=== PATIENT | male | born 1965 | race Caucasian/White ===

== ENCOUNTER 2018-11-25 21:26 | Emergency (ER) | payer SELFPAY ==
[~2018-11-25] VITALS: Ht 167.6 cm; Wt 86.2 kg
[~2018-11-25 21:26] MED LIST: DOXY100C14 PO; GLYB3TAB3 PO; HUM100IN3 SQ; INSU100I11 SQ; INSU100I13 SQ; IPRA4AER IH; METF500T16 PO; METF500T3 PO; [UNRECOGNIZED DRUG - CODE] MC; insulin
[2018-11-25] MEDS ORDERED: predniSONE 20 MG TABLET PO ONE (22:15)
[2018-11-25] MEDS ORDERED: diphenhydrAMINE 50 MG/ML VIAL IM ONE (22:15)
[2018-11-25 22:41] LABS: BASO % 1 % (0-3); EOS # 0.6 x10^3/uL (0.0-0.7); EOS % 9 % (0-3); HEMATOCRIT 38.7 % (39.0-53.0); HEMOGLOBIN 13.1 g/dL (13.0-17.5); LYMPH # 1.4 x10^3/uL (1.0-4.8); LYMPH % 19 % (24-48); MEAN CORPUSCULAR HEMOGLOBIN 33 pg (25-35); MEAN CORPUSCULAR HGB CONC 34 g/dL (31-37); MEAN CORPUSCULAR VOLUME 97 fL (79-100); MONO # 0.4 x10^3/uL (0.0-1.1); MONO % 5 % (0-9); NEUT # 4.9 x10^3/uL (1.8-7.7); NEUT % 67 % (31-73); PLATELET COUNT 263 x10^3/uL (140-400); RED CELL DISTRIBUTION WIDTH 13.4 % (11.5-14.5); WHITE BLOOD COUNT 7.3 x10^3/uL (4.0-11.0)
[2018-11-25 23:01] LABS: BILIRUBIN,URINE NEGATIVE (NEG); CLARITY,URINE CLEAR; COLOR,URINE YELLOW; NITRITE,URINE NEGATIVE (NEG); PH,URINE 5.5; PROTEIN,URINE NEGATIVE (NEG-TRACE); UROBILINOGEN,URINE 0.2 mg/dL (0.2 mg/dL)
[2018-11-25 23:05] LABS: BACTERIA,URINE 0 /HPF (0-FEW); RBC,URINE 0 /HPF (0-2); SQUAMOUS EPITHELIAL CELL,UR FEW /LPF; WBC,URINE OCC /HPF (0-4)
--- NOTE | 2018-11-25 23:20 | RAD ---
Exam: CT head INDICATION: Dizziness TECHNIQUE: Sequential axial images through the head were obtained without the administration of IV contrast. Comparisons: None FINDINGS: No focal parenchymal lesion or hemorrhage is identified. There is no midline shift or sulcal effacement. No acute vascular territory infarction is identified. Nuñez-white distinction is preserved. The ventricular system is within normal limits without compression hydrocephalus. The basal cisterns are well maintained. The visualized portions of the paranasal sinuses and mastoid air cells are well-pneumatized. No acute fractures. IMPRESSION: No acute intracranial abnormality. Exposure: One or more of the following in the visualized dose reduction techniques were utilized for this examination: 1. Automated exposure control 2. Adjustment of the MA and/or KV according to patient size Use of iterative of reconstructive technique Electronically signed by: Anibal Martell MD (11/25/2018 11:17 PM) [facility]
--- NOTE | 2018-11-25 23:39 | PHYS DOC ---
Past Medical History Past Medical History: Diabetes-Type II Past Surgical History: Cholecystectomy Alcohol Use: Occasionally Drug Use: Marijuana, Methamphetamine Adult General Chief Complaint Chief Complaint: BLOOD SUGAR PROBLEM HPI HPI Patient is a 53 year old male who presents with complains of dizziness �2 days. States at times movement and change of position make worse. He as well describes poison fang dermatitis which is worsened tonight. Patient has no primary care physician, does have underlying history of diabetes. He denies any chest pain, shortness of breath, nausea or vomiting. Orthostatic vital signs were reviewed, and unremarkable. Please see documentation. Review of Systems Review of Systems Constitutional: Denies fever or chills [] Eyes: Dizziness, no visual changes HENT: Denies nasal congestion or sore throat [] Respiratory: Denies cough or shortness of breath [] Cardiovascular: No additional information not addressed in HPI [] GI: Denies abdominal pain, nausea, vomiting, bloody stools or diarrhea [] : Denies dysuria or hematuria [] Musculoskeletal: Denies back pain or joint pain [] Integument: Itching, rash appreciated[] Neurologic: Denies headache, focal weakness or sensory changes [] Endocrine: Denies polyuria or polydipsia [] All other systems were reviewed and found to be within normal limits, except as documented in this note. Current Medications Current Medications Current Medications Medications (Trade) Dose Ordered Sig/Sofia Start Time Stop Time Status Last Admin Dose Admin Diphenhydramine HCl (Benadryl) 25 mg 1X ONCE 11/25/18 22:15 11/25/18 22:16 DC 11/25/18 22:40 25 MG Prednisone (Prednisone) 60 mg 1X ONCE 11/25/18 22:15 11/25/18 22:16 DC 11/25/18 22:40 60 MG Allergies Allergies Allergies Coded Allergies Type Severity Reaction Last Updated Verified No Known Drug Allergies 04/18/14 No Physical Exam Physical Exam Constitutional: Well developed, well nourished, no acute distress, non-toxic appearance. [] HENT: Normocephalic, atraumatic, bilateral external ears normal, oropharynx moist, no oral exudates, nose normal[] Eyes: PERRLA, EOMI, conjunctiva normal, no discharge, no evidence of nystagmus on examination Neck: Normal range of motion, no tenderness, supple, no stridor. [] Cardiovascular:Heart rate regular rhythm, no murmur [] Lungs & Thorax: Bilateral breath sounds clear to auscultation [] Abdomen: Bowel sounds normal, soft, no tenderness, no masses, no pulsatile masses. [] Skin: Warm, dry, no erythema, dermatitis appreciated to bilateral upper extremities, bilateral lower extremities. Back: No tenderness, no CVA tenderness. [] Extremities: No tenderness, no cyanosis, no clubbing, ROM intact, no edema. [] Neurologic: Alert and oriented X 3, normal motor function, normal sensory function, no focal deficits noted. [] Psychologic: Rest, somewhat tearful at times however denies suicidal and homicidal ideation Current Patient Data Vital Signs Vital Signs Date Time Temp Pulse Resp B/P (MAP) Pulse Ox O2 Delivery O2 Flow Rate FiO2 11/25/18 21:31 98.1 68 14 175/85 (115) 97 Room Air 98.1 Lab Values Laboratory Tests Test 11/25/18 21:38 11/25/18 22:26 11/25/18 22:54 11/25/18 23:20 Glucose (Fingerstick) 140 mg/dL (70-99) H White Blood Count 7.3 x10^3/uL (4.0-11.0) Red Blood Count 4.00 x10^6/uL (4.30-5.70) L Hemoglobin 13.1 g/dL (13.0-17.5) Hematocrit 38.7 % (39.0-53.0) L Mean Corpuscular Volume 97 fL (79-100) Mean Corpuscular Hemoglobin 33 pg (25-35) Mean Corpuscular Hemoglobin Concent 34 g/dL (31-37) Red Cell Distribution Width 13.4 % (11.5-14.5) Platelet Count 263 x10^3/uL (140-400) Neutrophils (%) (Auto) 67 % (31-73) Lymphocytes (%) (Auto) 19 % (24-48) L Monocytes (%) (Auto) 5 % (0-9) Eosinophils (%) (Auto) 9 % (0-3) H Basophils (%) (Auto) 1 % (0-3) Neutrophils # (Auto) 4.9 x10^3/uL (1.8-7.7) Lymphocytes # (Auto) 1.4 x10^3/uL (1.0-4.8) Monocytes # (Auto) 0.4 x10^3/uL (0.0-1.1) Eosinophils # (Auto) 0.6 x10^3/uL (0.0-0.7) Basophils # (Auto) 0.0 x10^3/uL (0.0-0.2) Urine Collection Type Unknown Urine Color Yellow Urine Clarity Clear Urine pH 5.5 Urine Specific [place] 1.020 Urine Protein Negative mg/dL (NEG-TRACE) Urine Glucose (UA) 250 mg/dL (NEG) Urine Ketones (Stick) Negative mg/dL (NEG) Urine Blood Negative (NEG) Urine Nitrite Negative (NEG) Urine Bilirubin Negative (NEG) Urine Urobilinogen Dipstick 0.2 mg/dL (0.2 mg/dL) Urine Leukocyte Esterase Negative (NEG) Urine RBC 0 /HPF (0-2) Urine WBC Occ /HPF (0-4) Urine Squamous Epithelial Cells Few /LPF Urine Bacteria 0 /HPF (0-FEW) Urine Mucus Mod /LPF Sodium Level 145 mmol/L (136-145) Potassium Level 3.3 mmol/L (3.5-5.1) L Chloride Level 108 mmol/L (98-107) H Carbon Dioxide Level 29 mmol/L (21-32) Anion Gap 8 (6-14) Blood Urea Nitrogen 9 mg/dL (8-26) Creatinine 0.8 mg/dL (0.7-1.3) Estimated GFR (Cockcroft-Gault) 100.7 BUN/Creatinine Ratio 11 (6-20) Glucose Level 133 mg/dL (70-99) H Calcium Level 8.4 mg/dL (8.5-10.1) L Total Bilirubin 0.3 mg/dL (0.2-1.0) Aspartate Amino Transferase (AST) 11 U/L (15-37) L Alanine Aminotransferase (ALT) 11 U/L (16-63) L Alkaline Phosphatase 80 U/L (46-116) Total Protein 6.4 g/dL (6.4-8.2) Albumin 2.9 g/dL (3.4-5.0) L Albumin/Globulin Ratio 0.8 (1.0-1.7) L Laboratory Tests 11/25/18 22:26 Laboratory Tests 11/25/18 23:20 EKG EKG [] Radiology/Procedures Radiology/Procedures [facility] [address] [place] [address] IMAGING REPORT Signed PATIENT: KRAIG NICK ACCOUNT: [id number] : 1965 LOCATION: ER AGE: 53 SEX: M EXAM STATUS: REG ER ORD. PHYSICIAN: JAMEEL NJ MD REASON: dizzyness/headache PROCEDURE: CT HEAD WO CONTRAST Exam: CT head INDICATION: Dizziness TECHNIQUE: Sequential axial images through the head were obtained without the administration of IV contrast. Comparisons: None FINDINGS: No focal parenchymal lesion or hemorrhage is identified. There is no midline shift or sulcal effacement. No acute vascular territory infarction is identified. Nuñez-white distinction is preserved. The ventricular system is within normal limits without compression hydrocephalus. The basal cisterns are well maintained. The visualized portions of the paranasal sinuses and mastoid air cells are well-pneumatized. No acute fractures. IMPRESSION: No acute intracranial abnormality. Exposure: One or more of the following in the visualized dose reduction techniques were utilized for this examination: 1. Automated exposure control 2. Adjustment of the MA and/or KV according to patient size Use of iterative of reconstructive technique Electronically signed by: Anibal Simpson MD (11/25/2018 11:17 PM) [facility] [place] DICTATED and SIGNED BY: ANIBAL SIMPSON MD DATE: 11/25/18 2317 [] Course & Med Decision Making Course & Med Decision Making Pertinent Labs and Imaging studies reviewed. (See chart for details) Patient presents to the emergency Department with complaints of dizziness �2 days, poison fang dermatitis. Laboratories and imaging reviewed. CT of head without evidence of acute process. Patient provided with prednisone 60 mg, Benadryl 25 mg IV with improvement. Prescription findings with patient prior to discharge. Would recommend continuation of Medrol Dosepak, meclizine provided for dizziness 25 mg by mouth twice a day �5 days. Return precautions provided upon discharge Dragon Disclaimer Dragon Disclaimer This electronic medical record was generated, in whole or in part, using a voice recognition dictation system. Departure Departure Impression: Primary Impression: Dizziness Additional Impression: Poison fang dermatitis Disposition: HOME, SELF-CARE Condition: STABLE Referrals: NO PCP (PCP) Patient Instructions: Dizziness, [id number], Poison Fang, [id number] Scripts Methylprednisolone (MEDROL) 4 Mg Tab.ds.pk 1 PKG PO UD for inflammation, #1 PKG Prov: JAMEEL NJ MD 11/26/18 Meclizine Hcl (MECLIZINE HCL) 25 Mg Tablet 1 TAB PO BID for dizziness, #10 TAB Prov: JAMEEL NJ MD 11/26/18 Problem Qualifiers JAMEEL NJ MD Nov 25, 2018 23:39
[2018-11-25 23:58] LABS: CALCIUM 8.4 mg/dL (8.5-10.1); CREATININE 0.8 mg/dL (0.7-1.3); GFR 100.7; POTASSIUM 3.3 mmol/L (3.5-5.1)
[2018-11-26 00:03] LABS: ALBUMIN 2.9 g/dL (3.4-5.0); ALBUMIN/GLOBULIN RATIO 0.8 (1.0-1.7); TOTAL BILIRUBIN 0.3 mg/dL (0.2-1.0); TOTAL PROTEIN 6.4 g/dL (6.4-8.2)
[2018-11-26] MEDS ORDERED: MECL25TA3 PO (00:29)
[2018-11-26] MEDS ORDERED: METH4TAB2 PO (00:32)
[2018-11-26 01:23] VITALS: BP 141/79
== END 2018-11-26 01:25 | disposition home or self-care (01) ==
LOC: ER 21:26
DX: R42 Dizziness and giddiness (principal); L23.7 Allergic contact dermatitis due to plants, except food; E11.9 Type 2 diabetes mellitus without complications
CPT/HCPCS: 36415; 70450; 80053; 81001; 82962; 85025; 96374; 99285; J1200; J7512; 96372

== ENCOUNTER 2019-09-29 08:50 | Inpatient (IN) | payer SELFPAY ==
[~2019-09-29] VITALS: Ht 167.6 cm; Wt 86.0 kg
[~2019-09-29 08:50] MED LIST changes: +MECL-75 PO; +METH4TAB2 PO
[2019-09-29] MEDS ORDERED: IV NORMAL SALINE 1000ML BAG 1,000 ML IV ONE ×2 (10:00→11:15)
[2019-09-29 10:17] LABS: BILIRUBIN,URINE NEGATIVE (NEG); CLARITY,URINE CLEAR; COLOR,URINE YELLOW; NITRITE,URINE NEGATIVE (NEG); PROTEIN,URINE NEGATIVE (NEG-TRACE); UROBILINOGEN,URINE 0.2 mg/dL (0.2 mg/dL)
[2019-09-29 10:19] LABS: BASO # 0.1 x10^3/uL (0.0-0.2); BASO % 1 % (0-3); EOS # 0.3 x10^3/uL (0.0-0.7); EOS % 3 % (0-3); HEMATOCRIT 46.3 % (39.0-53.0); HEMOGLOBIN 16.3 g/dL (13.0-17.5); LYMPH # 1.9 x10^3/uL (1.0-4.8); LYMPH % 21 % (24-48); MEAN CORPUSCULAR HEMOGLOBIN 33 pg (25-35); MEAN CORPUSCULAR HGB CONC 35 g/dL (31-37); MEAN CORPUSCULAR VOLUME 94 fL (79-100); MONO # 0.4 x10^3/uL (0.0-1.1); MONO % 5 % (0-9); NEUT # 6.4 x10^3/uL (1.8-7.7); NEUT % 71 % (31-73); PLATELET COUNT 230 x10^3/uL (140-400); RED BLOOD COUNT 4.92 x10^6/uL (4.30-5.70); RED CELL DISTRIBUTION WIDTH 12.6 % (11.5-14.5)
[2019-09-29 10:23] LABS: CALCIUM 9.6 mg/dL (8.5-10.1); CREATININE 1.3 mg/dL (0.7-1.3); GFR 57.3; POTASSIUM 3.8 mmol/L (3.5-5.1)
[2019-09-29 10:32] LABS: BACTERIA,URINE 0 /HPF (0-FEW); RBC,URINE 0 /HPF (0-2); SQUAMOUS EPITHELIAL CELL,UR FEW /LPF; WBC,URINE 0 /HPF (0-4)
[2019-09-29] MEDS ORDERED: INSULIN REGULAR 100 UNIT/ML 3ML VIAL. IV ONE (12:00)
--- NOTE | 2019-09-29 12:08 | PHYS DOC ---
Past Medical History Past Medical History: Diabetes-Type II Past Surgical History: No Surgical History Smoking Status: Current Every Day Smoker Alcohol Use: None Drug Use: Marijuana, Methamphetamine General Adult EDM: Chief Complaint: BLOOD SUGAR PROBLEM HPI: HPI: Patient is a 54 year old male with past medical history of diabetes who presents with dizziness, lightheadedness, increased thirst. This is been ongoing for the last couple of days. He got significantly worse today that he had a hard time walking around. He has been out of his insulin for the last 6 days. He states that he is homeless. His brother often buys his insulin for him, however his brother has not been working due to being sick. Review of Systems: Review of Systems: General: Denies fever, chills, sweats, fatigue Eyes: Denies drainage, blurred vision, eye redness HENT: Denies rhinorrhea, sore throat, earache Respiratory: Denies cough, shortness of breath, wheezing Cardiac: Denies edema, palpitations, chest pain GI: Denies abdominal pain, Nausea, vomiting MSK: Denies back pain, neck pain Skin: Denies rash, jaundice Neuro: Denies headache, dizziness reports lightheadedness Psychiatric: Denies SI/HI Heart Score: Risk Factors: Risk Factors: DM, Current or recent (<one month) smoker, HTN, HLP, family history of CAD, obesity. Risk Scores: Score 0 - 3: 2.5% MACE over next 6 weeks - Discharge Home Score 4 - 6: 20.3% MACE over next 6 weeks - Admit for Clinical Observation Score 7 - 10: 72.7% MACE over next 6 weeks - Early Invasive Strategies Current Medications: Current Medications Medications (Trade) Dose Ordered Sig/Sofia Start Time Stop Time Status Last Admin Dose Admin Sodium Chloride 1,000 ml @ 1,000 mls/hr 1X ONCE 09/29/19 11:15 09/29/19 12:14 09/29/19 11:08 1,000 MLS/HR Allergies: Allergies: Allergies Coded Allergies Type Severity Reaction Last Updated Verified No Known Drug Allergies 04/18/14 No Physical Exam: PE: General: Awake, alert, NAD. Well Nourished, well hydrated. Cooperative HEENT: Atraumatic, EOMI, PERRL, airway patent, moist oral mucosa Neck: Supple, trachea midline Respiratory: CTA bilaterally, normal effort, no wheezing/crackles CV: RRR, no murmur, cap refill <2 GI: Soft, nondistended, nontender, no masses MSK: No obvious deformities Skin: Warm, dry, intact Neuro: A&O x3, speech NL, sensory and motor grossly intact, no focal deficits Psych: Normal affect, normal mood, not suicidal or homicidal Current Patient Data: Labs: Laboratory Tests Test 09/29/19 09:50 09/29/19 11:20 White Blood Count 9.0 x10^3/uL (4.0-11.0) Red Blood Count 4.92 x10^6/uL (4.30-5.70) Hemoglobin 16.3 g/dL (13.0-17.5) Hematocrit 46.3 % (39.0-53.0) Mean Corpuscular Volume 94 fL (79-100) Mean Corpuscular Hemoglobin 33 pg (25-35) Mean Corpuscular Hemoglobin Concent 35 g/dL (31-37) Red Cell Distribution Width 12.6 % (11.5-14.5) Platelet Count 230 x10^3/uL (140-400) Neutrophils (%) (Auto) 71 % (31-73) Lymphocytes (%) (Auto) 21 % (24-48) L Monocytes (%) (Auto) 5 % (0-9) Eosinophils (%) (Auto) 3 % (0-3) Basophils (%) (Auto) 1 % (0-3) Neutrophils # (Auto) 6.4 x10^3/uL (1.8-7.7) Lymphocytes # (Auto) 1.9 x10^3/uL (1.0-4.8) Monocytes # (Auto) 0.4 x10^3/uL (0.0-1.1) Eosinophils # (Auto) 0.3 x10^3/uL (0.0-0.7) Basophils # (Auto) 0.1 x10^3/uL (0.0-0.2) Urine Collection Type Unknown Urine Color Yellow Urine Clarity Clear Urine pH 5.0 (<5.0-8.0) Urine Specific [place] >=1.030 (1.000-1.030) Urine Protein Negative mg/dL (NEG-TRACE) Urine Glucose (UA) >=1000 mg/dL (NEG) Urine Ketones (Stick) 15 mg/dL (NEG) Urine Blood Negative (NEG) Urine Nitrite Negative (NEG) Urine Bilirubin Negative (NEG) Urine Urobilinogen Dipstick 0.2 mg/dL (0.2 mg/dL) Urine Leukocyte Esterase Negative (NEG) Urine RBC 0 /HPF (0-2) Urine WBC 0 /HPF (0-4) Urine Squamous Epithelial Cells Few /LPF Urine Bacteria 0 /HPF (0-FEW) Sodium Level 130 mmol/L (136-145) L Potassium Level 3.8 mmol/L (3.5-5.1) Chloride Level 90 mmol/L (98-107) L Carbon Dioxide Level 27 mmol/L (21-32) Anion Gap 13 (6-14) Blood Urea Nitrogen 14 mg/dL (8-26) Creatinine 1.3 mg/dL (0.7-1.3) Estimated GFR (Cockcroft-Gault) 57.3 Glucose Level 637 mg/dL (70-99) *H Calcium Level 9.6 mg/dL (8.5-10.1) Glucose (Fingerstick) 475 mg/dL (70-99) H Laboratory Tests 09/29/19 09:50 Laboratory Tests 09/29/19 09:50 Vital Signs: Vital Signs Date Time Temp Pulse Resp B/P (MAP) Pulse Ox O2 Delivery O2 Flow Rate FiO2 09/29/19 09:55 98.5 90 18 117/82 (94) 96 Room Air 98.5 EKG: EKG: [] Radiology/Procedures: Radiology/Procedures: [] Course & Med Decision Making: Course & Med Decision Making Pertinent Labs and Imaging studies reviewed. (See chart for details) Patient is a 54-year-old male with past medical history of diabetes who presents to the emergency room with lightheadedness and increased thirst after not taking his insulin for several days. Patient's glucose is in the 600s. He is not in HHS or DKA. He will given fluids and glucose will be reevaluated. He will be admitted for hyperglycemia. Dragon Disclaimer: Margaret Disclaimer: This electronic medical record was generated, in whole or in part, using a voice recognition dictation system. Departure Departure Impression: Primary Impression: Hyperglycemia Disposition: ADMITTED INPATIENT Condition: STABLE Referrals: NO PCP (PCP) Justicifation of Admission Dx: Justifications for Admission: Justification of Admission Dx: Yes Diabetic Urgency: Diabetic Urgency DOMO MANE MD Sep 29, 2019 12:08
--- NOTE | 2019-09-29 12:11 | PDOC1 ---
History and Physical Date of Admission Date of Admission DATE: 09/29/19 TIME: 12:07 Identification/Chief Complaint Chief Complaint Polyuria, polydipsia Source Source: Patient History of Present Illness History of Present Illness Mr Turner is a 54yo M w/ PMHx Dm2, COPD, smoker comes to ED reporting he and his brother was not able to buy him insulin anymore and has had polyuria and polydipsia for about 5 days and just "does not feel good." Labs in ED NA 130, K3.8, BUN 14, CR 1.3, glucose 637. A1c of 14.2 previously. 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 Sad he was laid off by [employer]. Notes he is ok doing what his did with NPH insulin and oral meds, but now he is housing insecure sleeping on peoples couches when he can. Of further note his brother has been short of breath and is been tested for COVID-19 currently. No pain complaints. Admitted for further treatment Past Medical History Pulmonary: Bronchitis Psych: Addictions Infectious disease: No pertinent hx Endocrine: Diabetes Family History Family History: High Cholestrol Social History ALCOHOL: occassional Drugs: None, Other Current Medications Current Medications Current Medications Sodium Chloride 1,000 ml @ 40 mls/hr 1X ONCE IV Last administered on 09/29/19at 10:00; Start 09/29/19 at 10:00; Stop 09/30/19 at 10:59 Sodium Chloride 1,000 ml @ 1,000 mls/hr 1X ONCE IV Last administered on 09/28at 11:08; Start 09/29/19 at 11:15; Stop 09/29/19 at 12:14 Insulin Human Regular (HumuLIN R VIAL) 10 unit 1X ONCE IV Last administered on 09/29/19at 12:03; Start 09/29/19 at 12:00; Stop 09/29/19 at 12:02; Status DC Active Scripts Active Medrol (Methylprednisolone) 4 Mg Tab.ds.pk 1 Pkg PO UD Meclizine Hcl 25 Mg Tablet 1 Tab PO BID Metformin Hcl 500 Mg Tablet 500 Mg PO BIDWMEALS 30 Days Humalog (Insulin Lispro) 100 Unit/1 Ml Insuln.pen 10 Units SQ TIDAC 30 Days Lantus Solostar (Insulin Glargine,Hum.rec.anlog) 100 Unit/1 Ml Insuln.pen 20 Units SQ QHS 30 Days Allergies Allergies: Coded Allergies: No Known Drug Allergies (Unverified , 04/18/14) Physical Exam General: Alert, Oriented X3, Cooperative, No acute distress HEENT: Atraumatic, PERRLA, EOMI, Mucous membr. moist/pink Lungs: Other (scattered wheezing) Heart: S1S2, RRR, no thrills, no rubs Abdomen: Normal bowel sounds, Soft, No tenderness, No hepatosplenomegaly, No masses Rectal Exam: not examined Extremities: No clubbing, No cyanosis, No edema, Normal pulses, No tenderness/ swelling Skin: No rashes, No breakdown, Other (Sunburned, poor skin turgor) Neuro: Normal gait, Normal speech, Strength at 5/5 X4 ext, Normal tone, Sensation intact, Cranial nerves 3-12 NL, Reflexes 2+ Psych/Mental Status: Mental status NL, Mood NL Vitals Vitals Vital Signs Date Time Temp Pulse Resp B/P (MAP) Pulse Ox O2 Delivery O2 Flow Rate FiO2 09/29/19 09:55 98.5 90 18 117/82 (94) 96 Room Air 98.5 Labs Labs Laboratory Tests Test 09/29/19 09:50 09/29/19 11:20 White Blood Count 9.0 x10^3/uL (4.0-11.0) Red Blood Count 4.92 x10^6/uL (4.30-5.70) Hemoglobin 16.3 g/dL (13.0-17.5) Hematocrit 46.3 % (39.0-53.0) Mean Corpuscular Volume 94 fL (79-100) Mean Corpuscular Hemoglobin 33 pg (25-35) Mean Corpuscular Hemoglobin Concent 35 g/dL (31-37) Red Cell Distribution Width 12.6 % (11.5-14.5) Platelet Count 230 x10^3/uL (140-400) Neutrophils (%) (Auto) 71 % (31-73) Lymphocytes (%) (Auto) 21 % (24-48) Monocytes (%) (Auto) 5 % (0-9) Eosinophils (%) (Auto) 3 % (0-3) Basophils (%) (Auto) 1 % (0-3) Neutrophils # (Auto) 6.4 x10^3/uL (1.8-7.7) Lymphocytes # (Auto) 1.9 x10^3/uL (1.0-4.8) Monocytes # (Auto) 0.4 x10^3/uL (0.0-1.1) Eosinophils # (Auto) 0.3 x10^3/uL (0.0-0.7) Basophils # (Auto) 0.1 x10^3/uL (0.0-0.2) Urine Collection Type Unknown Urine Color Yellow Urine Clarity Clear Urine pH 5.0 (<5.0-8.0) Urine Specific [place] >=1.030 (1.000-1.030) Urine Protein Negative mg/dL (NEG-TRACE) Urine Glucose (UA) >=1000 mg/dL (NEG) Urine Ketones (Stick) 15 mg/dL (NEG) Urine Blood Negative (NEG) Urine Nitrite Negative (NEG) Urine Bilirubin Negative (NEG) Urine Urobilinogen Dipstick 0.2 mg/dL (0.2 mg/dL) Urine Leukocyte Esterase Negative (NEG) Urine RBC 0 /HPF (0-2) Urine WBC 0 /HPF (0-4) Urine Squamous Epithelial Cells Few /LPF Urine Bacteria 0 /HPF (0-FEW) Sodium Level 130 mmol/L (136-145) Potassium Level 3.8 mmol/L (3.5-5.1) Chloride Level 90 mmol/L (98-107) Carbon Dioxide Level 27 mmol/L (21-32) Anion Gap 13 (6-14) Blood Urea Nitrogen 14 mg/dL (8-26) Creatinine 1.3 mg/dL (0.7-1.3) Estimated GFR (Cockcroft-Gault) 57.3 Glucose Level 637 mg/dL (70-99) Calcium Level 9.6 mg/dL (8.5-10.1) Glucose (Fingerstick) 475 mg/dL (70-99) Laboratory Tests Test 09/29/19 09:50 09/29/19 11:20 White Blood Count 9.0 x10^3/uL (4.0-11.0) Red Blood Count 4.92 x10^6/uL (4.30-5.70) Hemoglobin 16.3 g/dL (13.0-17.5) Hematocrit 46.3 % (39.0-53.0) Mean Corpuscular Volume 94 fL (79-100) Mean Corpuscular Hemoglobin 33 pg (25-35) Mean Corpuscular Hemoglobin Concent 35 g/dL (31-37) Red Cell Distribution Width 12.6 % (11.5-14.5) Platelet Count 230 x10^3/uL (140-400) Neutrophils (%) (Auto) 71 % (31-73) Lymphocytes (%) (Auto) 21 % (24-48) Monocytes (%) (Auto) 5 % (0-9) Eosinophils (%) (Auto) 3 % (0-3) Basophils (%) (Auto) 1 % (0-3) Neutrophils # (Auto) 6.4 x10^3/uL (1.8-7.7) Lymphocytes # (Auto) 1.9 x10^3/uL (1.0-4.8) Monocytes # (Auto) 0.4 x10^3/uL (0.0-1.1) Eosinophils # (Auto) 0.3 x10^3/uL (0.0-0.7) Basophils # (Auto) 0.1 x10^3/uL (0.0-0.2) Urine Collection Type Unknown Urine Color Yellow Urine Clarity Clear Urine pH 5.0 (<5.0-8.0) Urine Specific [place] >=1.030 (1.000-1.030) Urine Protein Negative mg/dL (NEG-TRACE) Urine Glucose (UA) >=1000 mg/dL (NEG) Urine Ketones (Stick) 15 mg/dL (NEG) Urine Blood Negative (NEG) Urine Nitrite Negative (NEG) Urine Bilirubin Negative (NEG) Urine Urobilinogen Dipstick 0.2 mg/dL (0.2 mg/dL) Urine Leukocyte Esterase Negative (NEG) Urine RBC 0 /HPF (0-2) Urine WBC 0 /HPF (0-4) Urine Squamous Epithelial Cells Few /LPF Urine Bacteria 0 /HPF (0-FEW) Sodium Level 130 mmol/L (136-145) Potassium Level 3.8 mmol/L (3.5-5.1) Chloride Level 90 mmol/L (98-107) Carbon Dioxide Level 27 mmol/L (21-32) Anion Gap 13 (6-14) Blood Urea Nitrogen 14 mg/dL (8-26) Creatinine 1.3 mg/dL (0.7-1.3) Estimated GFR (Cockcroft-Gault) 57.3 Glucose Level 637 mg/dL (70-99) Calcium Level 9.6 mg/dL (8.5-10.1) Glucose (Fingerstick) 475 mg/dL (70-99) Images Images CXR: No focal parenchymal lesion or hemorrhage is identified. There is no midline shift or sulcal effacement. No acute vascular territory infarction is identified. Nuñez-white distinction is preserved. The ventricular system is within normal limits without compression hydrocephalus. The basal cisterns are well maintained. The visualized portions of the paranasal sinuses and mastoid air cells are well- pneumatized. No acute fractures. IMPRESSION: No acute intracranial abnormality. VTE Prophylaxis Ordered VTE Prophylaxis Devices: Yes VTE Pharmacological Prophylaxi: Yes Assessment/Plan Assessment/Plan A/P: Hyperglycemia with HHNK - type 2 diabetes mellitus. Will get back on meds, IV insulin and IVF for now. COPD with shortness of breath - his brother is being COVID [address] testing. Morbid obesity, BMI 48 - counseled heavily on lifestyle modification tobacco abuse disorder, 2 pack a day VANI - likely vasomotor nephropathy. will hydrate FEN - NPO PPX - lovenox FULL CODE Dispo - inpatient for HHNK treatment and COVID 19 testing Patient was evaluated during global COVID-19 pandemic and the diagnosis was considered upon her initial presentation. Their evaluation treatment testing was consistent with current guidelines for patients who present with complaints of symptoms that may be related to COVID-19. Will be placed in comfort isolation unit Justicifation of Admission Dx: Justifications for Admission: Justification of Admission Dx: Yes LAN BENNETT MD Sep 29, 2019 12:11
[2019-09-29] MEDS ORDERED: DOCUSATE SODIUM 100 MG CAPSULE. PO PRN (14:30)
[2019-09-29] MEDS ORDERED: ONDANSETRON PF 4 MG/2 ML VIAL. IV PRN (14:30)
[2019-09-29] MEDS ORDERED: guaiFENesin ORAL 200 MG/10 ML LIQUID. PO PRN (14:30)
[2019-09-29] MEDS ORDERED: DEXTROSE 50% 25 GM / 50ML DISP.SYRIN. IV PRN (14:30)
[2019-09-29] MEDS: IV NORMAL SALINE 1000ML BAG 1,000 ML IV SCH (15:43)
[2019-09-29] MEDS: ENOXAPARIN 40 MG/0.4 ML SYRINGE. SQ SCH (15:44)
--- NOTE | 2019-09-29 15:58 | RAD ---
CHEST AP ONLY History: COPD, COVID PUI Comparison: February 28, 2018 Findings: Single view of the chest is submitted. There is no infiltrate, pneumothorax, or effusion. The pericardial cardiac silhouette is within normal limits in size. There is some atherosclerotic calcification of the thoracic aorta. Impression: 1. There is no radiographic evidence of acute cardiopulmonary disease. Electronically signed by: Koffi Pro MD (09/29/2019 3:55 PM) [facility]
[2019-09-29 16:27] VITALS: BP 142/84
[2019-09-29] MEDS: metFORMIN 500 MG TABLET PO SCH (17:00)
[2019-09-29] MEDS: INSULIN LISPRO 300 UNITS/3 ML VIAL. SQ SCH ×2 (17:18→22:13)
[2019-09-29] MEDS: ACETAMINOPHEN 325 MG TABLET. PO PRN (17:19)
[2019-09-29 19:00] VITALS: BP 155/65
[2019-09-29] MEDS ORDERED: INSULIN NPH/REG INSULIN 70/30 300 UNITS/3 ML INSULN.PEN. SQ SCH (21:00)
[2019-09-29 23:00] VITALS: BP 92/53
[2019-09-30] MEDS: IV NORMAL SALINE 1000ML BAG 1,000 ML IV SCH ×3 (02:20→20:39)
[2019-09-30 03:00] VITALS: BP 147/82
[2019-09-30 07:00] VITALS: BP 118/70
[2019-09-30] MEDS: metFORMIN 500 MG TABLET PO SCH ×2 (08:41→17:09)
[2019-09-30] MEDS: INSULIN LISPRO 300 UNITS/3 ML VIAL. SQ SCH ×4 (09:28→21:00)
[2019-09-30] MEDS: INSULIN NPH/REG INSULIN 70/30 300 UNITS/3 ML INSULN.PEN. SQ SCH ×2 (09:30→22:08)
[2019-09-30 11:00] VITALS: BP 138/71
--- NOTE | 2019-09-30 11:11 | PDOC ---
[employer] PROGRESS NOTE Chief Complaint Chief Complaint Hyperglycemia with HHNK - type 2 diabetes mellitus COPD with shortness of breath Morbid obesity, BMI 48 tobacco abuse disorde VANI - likely vasomotor nephropathy History of Present Illness History of Present Illness 09/30/2019 Patient seen and examined He complains of some throat pain states Chloraseptic helped Discussed with RN Chart reviewed Vitals/I&O Vitals/I&O: Vital Signs Date Time Temp Pulse Resp B/P (MAP) Pulse Ox O2 Delivery O2 Flow Rate FiO2 09/30/19 03:00 98.9 66 19 147/82 (103) 97 Room Air 98.9 I & O 09/29/19 09/29/19 09/30/19 15:00 23:00 07:00 Intake Total 2000 ml 0 ml 120 ml Output Total 500 ml Balance 2000 ml 0 ml -380 ml Physical Exam General: Alert, Oriented X3, Cooperative, No acute distress Lungs: Clear Abdomen: Normal bowel sounds, Soft, No tenderness, No hepatosplenomegaly, No masses Extremities: No clubbing, No cyanosis, No edema, Normal pulses, No tenderness/swelling Skin: No rashes, No breakdown, Other (Sunburned, poor skin turgor) Labs Labs: Laboratory Tests Test 09/29/19 11:20 09/29/19 15:38 09/29/19 17:05 09/29/19 21:07 Glucose (Fingerstick) 475 mg/dL (70-99) 277 mg/dL (70-99) 373 mg/dL (70-99) 318 mg/dL (70-99) Test 09/30/19 09:04 Glucose (Fingerstick) 246 mg/dL (70-99) Assessment and Plan Assessmemt and Plan Hyperglycemia with HHNK - type 2 diabetes mellitus. Will get back on meds, IV insulin and IVF for now. COPD with shortness of breath - his brother is being COVID [address] testing. Morbid obesity, BMI 48 - counseled heavily on lifestyle modification tobacco abuse disorder, 2 pack a day VANI - likely vasomotor nephropathy. will hydrate Check for COVID-19 Home meds DVT prophylaxis Full code Comment Review of Relevant I have reviewed the following items moncho (where applicable) has been applied. Medications: Current Medications Medications (Trade) Dose Ordered Sig/Sofia Route PRN Reason Start Time Stop Time Status Last Admin Dose Admin Sodium Chloride 1,000 ml @ 1,000 mls/hr 1X ONCE IV 09/29/19 11:15 09/29/19 12:14 DC 09/29/19 11:08 Insulin Human Regular (HumuLIN R VIAL) 10 unit 1X ONCE IV 09/29/19 12:00 09/29/19 12:02 DC 09/29/19 12:03 Sodium Chloride 1,000 ml @ 100 mls/hr Q10H IV 09/29/19 14:25 09/30/19 08:42 Acetaminophen (Tylenol) 650 mg PRN Q4HRS PRN PO TEMP OVER 100.4F OR MILD PAIN 09/29/19 14:30 09/29/19 17:19 Enoxaparin Sodium (Lovenox 40mg Syringe) 40 mg Q24H SQ 09/29/19 15:00 09/29/19 15:44 Metformin HCl (Glucophage) 500 mg BIDWMEALS PO 09/29/19 17:00 09/30/19 08:41 Insulin Human Lispro (HumaLOG) 0-9 UNITS TIDACHC SQ 09/29/19 16:30 09/30/19 09:28 Insulin Human Isoph/Insulin Regular (HumuLIN 70/30) 20 units BID SQ 09/30/19 08:40 09/30/19 09:30 Justicifation of Admission Dx: Justifications for Admission: Justification of Admission Dx: Yes ALFREDO BURDEN III DO Sep 30, 2019 11:10
[2019-09-30 15:00] VITALS: BP 120/65
[2019-09-30] MEDS: ENOXAPARIN 40 MG/0.4 ML SYRINGE. SQ SCH (17:09)
--- NOTE | 2019-09-30 17:22 | NUR ---
SW following. Reviewed chart and spoke with RN and CM. Pt from home. Pt homeless per RN and can't afford insulin. SW provided resources, including contact information for [facility]. Pt is COVID pending. SW to continue following.
[2019-09-30 19:53] VITALS: BP 130/70
[2019-09-30] MEDS ORDERED: INSULIN LISPRO 300 UNITS/3 ML VIAL. SQ ONE (22:00)
[2019-09-30 22:23] VITALS: BP 137/88
[2019-09-30] MEDS ORDERED: traZODone 50 MG TABLET. PO PRN (22:45)
[2019-10-01 07:45] VITALS: BP 118/89
[2019-10-01] MEDS ORDERED: INSULIN NPH/REG INSULIN 70/30 300 UNITS/3 ML INSULN.PEN. SQ SCH (09:00)
[2019-10-01] MEDS: IV NORMAL SALINE 1000ML BAG 1,000 ML IV SCH ×2 (10:48→16:25)
[2019-10-01] MEDS: ACETAMINOPHEN 325 MG TABLET. PO PRN (10:53)
[2019-10-01] MEDS: metFORMIN 500 MG TABLET PO SCH ×2 (10:56→17:33)
[2019-10-01 11:00] VITALS: BP 140/82
[2019-10-01] MEDS: INSULIN LISPRO 300 UNITS/3 ML VIAL. SQ SCH ×3 (11:09→17:43)
--- NOTE | 2019-10-01 11:24 | PDOC ---
[employer] PROGRESS NOTE Chief Complaint Chief Complaint Hyperglycemia with HHNK - type 2 diabetes mellitus COPD with shortness of breath Morbid obesity, BMI 48 tobacco abuse disorde VANI - likely vasomotor nephropathy History of Present Illness History of Present Illness 10/01/2019 Patient seen and examined He is at his baseline Resting with no apparent distress Discussed with case management Chart reviewed I put discharge orders in He will be going to a homeless alf 09/30/2019 Patient seen and examined He complains of some throat pain states Chloraseptic helped Discussed with RN Chart reviewed Vitals/I&O Vitals/I&O: Vital Signs Date Time Temp Pulse Resp B/P (MAP) Pulse Ox O2 Delivery O2 Flow Rate FiO2 10/01/19 07:45 98.6 57 16 118/89 (99) 95 Room Air 98.6 I & O 09/30/19 09/30/19 10/01/19 15:00 23:00 07:00 Intake Total 740 ml 820 ml 180 ml Output Total 2200 ml 500 ml Balance 740 ml -1380 ml -320 ml Physical Exam General: Alert, Oriented X3, Cooperative, No acute distress Lungs: Clear Abdomen: Normal bowel sounds, Soft, No tenderness, No hepatosplenomegaly, No masses Extremities: No clubbing, No cyanosis, No edema, Normal pulses, No tenderness/swelling Skin: No rashes, No breakdown, Other (Sunburned, poor skin turgor) Labs Labs: Laboratory Tests Test 09/30/19 12:31 09/30/19 17:11 09/30/19 21:34 10/01/19 08:40 Glucose (Fingerstick) 222 mg/dL (70-99) 259 mg/dL (70-99) 407 mg/dL (70-99) 187 mg/dL (70-99) Test 10/01/19 11:21 Glucose (Fingerstick) 269 mg/dL (70-99) Assessment and Plan Assessmemt and Plan He is at his baseline with resolving: Hyperglycemia with HHNK - type 2 diabetes mellitus. IV insulin and IVF for now. COPD with shortness of breath Morbid obesity, BMI 48 - counseled heavily on lifestyle modification tobacco abuse disorder, 2 pack a day VANI - likely vasomotor nephropathy. will hydrate Check for COVID-19 Home meds DVT prophylaxis Full code Homelessness Appreciate subspecialist input Discharge back to his homeless alf once his glucose is under 200 this afternoon Comment Review of Relevant I have reviewed the following items moncho (where applicable) has been applied. Medications: Current Medications Medications (Trade) Dose Ordered Sig/Sofia Route PRN Reason Start Time Stop Time Status Last Admin Dose Admin Insulin Human Lispro (HumaLOG) 8 units 1X ONCE SQ 09/30/19 22:00 09/30/19 22:01 DC 09/30/19 22:11 Insulin Human Isoph/Insulin Regular (HumuLIN 70/30) 25 units BID SQ 10/01/19 09:00 10/01/19 09:00 Trazodone HCl (Desyrel) 50 mg PRN QHS PRN PO INSOMNIA 09/30/19 22:45 09/30/19 23:00 Justicifation of Admission Dx: Justifications for Admission: Justification of Admission Dx: Yes ALFREDO BURDEN III DO Oct 01, 2019 11:24
[2019-10-01] MEDS ORDERED: INSULIN LISPRO 300 UNITS/3 ML VIAL. SQ ONE ×2 (12:15→14:30)
--- NOTE | 2019-10-01 12:36 | DS ---
DATE OF DISCHARGE: ADMISSION DIAGNOSES: Hyperglycemic hyperosmolar state, chronic obstructive pulmonary disease, tobacco abuse, acute kidney injury. DISCHARGE DIAGNOSES: Resolving hyperglycemia, chronic obstructive pulmonary disease, resolving acute kidney injury (his creatinine went from 1.3 back down to 1). HOSPITAL COURSE: The patient is a pleasant middle-aged male, who presented with hyperglycemia with a hyperosmolar state. His glucose was 475. His creatinine is also elevated at 1.3. We put him on a sliding scale and fluids and over the past couple of days, he returned to his baseline. This morning, I saw and examined him. Heart tones are normal. Lungs are clear. He is doing well. I spoke with case management and the nurse. We plan to discharge as long as the sugars are under 200 this afternoon. DISPOSITION: Home. ACTIVITY: As tolerated. DIET: 1800-calorie ADA. MEDICATIONS: Please see the MRAD. TOTAL TIME: 34 minutes. ALFREDO BURDEN DO DR: AMPARO/keenan JOB#: [id number] / [id number]
[2019-10-01 15:00] VITALS: BP 150/79
[2019-10-01] MEDS: ENOXAPARIN 40 MG/0.4 ML SYRINGE. SQ SCH (15:00)
--- NOTE | 2019-10-01 16:42 | NUR ---
SW following. Spoke with RN and reviewed chart. Pt to discharge today. Pt given contact numbers for homeless shelters and diabetic care through [facility]. Pt plans to stay with a friend in [place]. No further SW needs at this time.
--- NOTE | 2019-10-01 17:55 | NUR ---
Discharge instructions given to patient. Education given over DM, Hyperglycemia, and hypoglycemia. Resource information for homeless shelters and [facility] given to pt. Pt verbalizes understanding. Cab service called with patient's brother's address and pt awaiting ride.
[2019-10-01] MEDS ORDERED: INSULIN NPH/REG HUM 70/30 300 UNITS/3 ML VIAL. SQ SCH (21:00)
== END 2019-10-01 19:10 | disposition home or self-care (01) | DRG 638 ==
LOC: ER 08:50 → 4 NORTH 11:28 → 6 SOUTH 12:42 → 5 SOUTH 10-01 11:56 → 6 SOUTH 10-01 15:16
PROVIDERS: ADMIT Internal Medicine; ATTEND Internal Medicine
DX: E11.00 Type 2 diabetes mellitus with hyperosmolarity without nonketotic hyperglycemic-hyperosmolar coma (NKHHC) (principal); Z68.42 Body mass index [BMI] 45.0-49.9, adult; N17.9 Acute kidney failure, unspecified; E11.65 Type 2 diabetes mellitus with hyperglycemia; E66.01 Morbid (severe) obesity due to excess calories; Z20.828 Contact with and (suspected) exposure to other viral communicable diseases; F17.210 Nicotine dependence, cigarettes, uncomplicated; J44.9 Chronic obstructive pulmonary disease, unspecified; Z59.0 Homelessness; Z78.9 Other specified health status
CPT/HCPCS: 36415; 71045; 80048; 81001; 82962; 85025; 96361; 96372; 96374; 99285; J1650; J1815; J7030; G0378; U0003-CS

== ENCOUNTER 2019-10-07 19:27 | Observation (INO) | payer SELFPAY ==
[~2019-10-07] VITALS: Ht 167.6 cm; Wt 86.3 kg
--- NOTE | 2019-10-07 19:35 | PHYS DOC ---
Past Medical History Past Medical History: Diabetes-Type II Past Surgical History: No Surgical History Smoking Status: Current Every Day Smoker Alcohol Use: None Drug Use: Marijuana, Methamphetamine General Adult EDM: Chief Complaint: high blood sugar HPI: HPI: Patient is a 54 year old male who presents for evaluation of high blood sugar. Pt arrived via EMS from [place]. Blood sugar was "high" before arrival. Patient has had elevated blood sugars in the past. Patient is not had insulin for almost 1 week. He had been admitted to the hospital that time. As an outpatient patient had used methamphetamine recently he states as well. Patient is somewhat anxious and a bit agitated on arrival. Patient has a dry mouth and complained of increased urination. Patient states he may have been exposed to COVID from his brother Review of Systems: Review of Systems: Constitutional: Denies fever or chills. [] Eyes: Denies change in visual acuity. [] HENT: Denies nasal congestion or sore throat. [] Respiratory: Denies cough has shortness of breath. [] Cardiovascular: Denies chest pain or edema. [] GI: Denies abdominal pain,has nausea no vomiting, no bloody stools or diarrhea. [] : Denies dysuria, increased urination. [] Musculoskeletal: Denies back pain or joint pain. [] Integument: Denies rash. [] Neurologic: Denies headache, focal weakness or sensory changes. [] Endocrine: Denies polyuria or polydipsia. [] Lymphatic: Denies swollen glands. [] Psychiatric: Denies depression or anxiety. [] Heart Score: Risk Factors: Risk Factors: DM, Current or recent (<one month) smoker, HTN, HLP, family history of CAD, obesity. Risk Scores: Score 0 - 3: 2.5% MACE over next 6 weeks - Discharge Home Score 4 - 6: 20.3% MACE over next 6 weeks - Admit for Clinical Observation Score 7 - 10: 72.7% MACE over next 6 weeks - Early Invasive Strategies Allergies: Allergies: Allergies Coded Allergies Type Severity Reaction Last Updated Verified No Known Drug Allergies 04/18/14 No Physical Exam: PE: Constitutional: Well developed, well nourished, moderate acute distress. [] HENT: Normocephalic, atraumatic, bilateral external ears normal, oropharynx moist, no oral exudates, nose normal. [] Eyes: PERRL, EOMI, conjunctiva normal, no discharge. [] Neck: Normal range of motion, no tenderness, supple, no stridor. [] Cardiovascular:Heart rate tachy regular rhythm, no murmur [] Lungs & Thorax: Bilateral breath sounds clear to auscultation [] Abdomen: Bowel sounds normal, soft, no tenderness, no masses, no pulsatile masses. [] Skin: Warm, dry, no erythema, no rash. [] Back: No tenderness. [] Extremities: No tenderness, no cyanosis, ROM intact, no edema. [] Neurologic: Alert and oriented, normal motor function, normal sensory function, no focal deficits noted. [] Psychologic: Affect abnormal, judgement abnormal, mood abnormal. [] EKG: EKG: EKG: NSR, rate 55, leftward axis, otherwise normal EKG, not STEMI read at 1954[] Radiology/Procedures: Radiology/Procedures: [] Course & Med Decision Making: Course & Med Decision Making Pertinent Labs and Imaging studies reviewed. (See chart for details) [] Dragon Disclaimer: Dragon Disclaimer: This electronic medical record was generated, in whole or in part, using a voice recognition dictation system. 2119 Dr. Caldwell is the accepting hospitalist physician. Patient was placed on insulin drip. Patient already given dose of 8 units IV push. We will continue to monitor his sugars closely overnight. Patient has hyperglycemia but is not in obvious DKA at this time. Patient very noncompliant with his diabetes management. Patient resting comfortably. Patient is a COVID PUI becau se he was exposed to his brother who is positive for COVID Departure Departure Impression: Primary Impression: Hyperglycemia Additional Impressions: Uncontrolled diabetes mellitus Qualified Codes: E11.65 - Type 2 diabetes mellitus with hyperglycemia Person under investigation for COVID-19 Methamphetamine use Disposition: ADMITTED INPATIENT Admitting Physician: DAXA Condition: STABLE Referrals: NO PCP (PCP) Justicifation of Admission Dx: Justifications for Admission: Justification of Admission Dx: Yes COVID-19 Assessment: COVID-19 Patient Risks: Age 65 or older: No Sign of co-morbidity: Yes Exp to person + for COVID: Yes Exp to PUI: Yes Travel from affected area: No Lower respiratory symptoms: Yes Fever: No Other: No PPE Use: Full PPE with N95 mask or PAPR: Yes DIANE SIMPSON DO Oct 07, 2019 19:34
[2019-10-07] MEDS ORDERED: IV NORMAL SALINE 1000ML BAG 1,000 ML IV ONE (19:45)
[2019-10-07 20:00] LABS: BASO % 1 % (0-3); EOS # 0.3 x10^3/uL (0.0-0.7); EOS % 5 % (0-3); HEMOGLOBIN 13.6 g/dL (13.0-17.5); LYMPH # 1.3 x10^3/uL (1.0-4.8); LYMPH % 22 % (24-48); MEAN CORPUSCULAR HEMOGLOBIN 33 pg (25-35); MEAN CORPUSCULAR HGB CONC 34 g/dL (31-37); MEAN CORPUSCULAR VOLUME 97 fL (79-100); MONO # 0.4 x10^3/uL (0.0-1.1); MONO % 6 % (0-9); NEUT # 4.1 x10^3/uL (1.8-7.7); NEUT % 67 % (31-73); PLATELET COUNT 183 x10^3/uL (140-400); RED BLOOD COUNT 4.12 x10^6/uL (4.30-5.70); RED CELL DISTRIBUTION WIDTH 13.1 % (11.5-14.5); WHITE BLOOD COUNT 6.1 x10^3/uL (4.0-11.0)
--- NOTE | 2019-10-07 20:08 | EKG ---
[facility] [address] [place] [address] Test Date: 2019-10-07 Test Time: 19:49:53 Pat Name: KRAIG NICK Department: Room: Gender: M Orientor: : 1965 Requested By: DIANE SIMPSON Order Number: [id number] Reading MD: Measurements Intervals [place] Rate: 75 P: 48 CT: 166 QRS: -4 QRSD: 96 T: 33 QT: 392 QTc: 440 Interpretive Statements SINUS RHYTHM LEFTWARD AXIS OTHERWISE NORMAL ECG RI6.01 No previous ECG available for comparison
[2019-10-07 20:14] LABS: ALBUMIN 3.3 g/dL (3.4-5.0); CREATININE 1.2 mg/dL (0.7-1.3); GFR 62.9; POTASSIUM 3.8 mmol/L (3.5-5.1); TOTAL BILIRUBIN 0.5 mg/dL (0.2-1.0); TOTAL PROTEIN 6.7 g/dL (6.4-8.2)
[2019-10-07] MEDS ORDERED: INSULIN REGULAR 100 UNIT/ML 3ML VIAL. IV ONE (20:30)
[2019-10-07 20:39] LABS: BILIRUBIN,URINE NEGATIVE (NEG); CLARITY,URINE CLEAR; COLOR,URINE YELLOW; NITRITE,URINE NEGATIVE (NEG); PH,URINE 5.5 (<5.0-8.0); PROTEIN,URINE NEGATIVE (NEG-TRACE); UROBILINOGEN,URINE 0.2 mg/dL (0.2 mg/dL)
[2019-10-07 20:42] LABS: BACTERIA,URINE 0 /HPF (0-FEW); RBC,URINE OCC /HPF (0-2); WBC,URINE OCC /HPF (0-4)
[2019-10-07 20:46] LABS: AMPHETAMINE/METHAMPHETAMINE POS (NEG); BARBITURATES NEG (NEG); BENZODIAZEPINES NEG (NEG); CANNABINOIDS NEG (NEG); COCAINE NEG (NEG); METHADONE NEG (NEG); OPIATES NEG (NEG); PHENCYCLIDINE NEG (NEG)
[2019-10-07] MEDS ORDERED: INSULIN,REGULAR 100 UNIT DRIP 100 ML IV ONE ×2 (21:24→22:00)
[2019-10-07] MEDS ORDERED: IV NORMAL SALINE 1000ML BAG 1,000 ML IV SCH (21:30)
[2019-10-07] MEDS ORDERED: ONDANSETRON PF 4 MG/2 ML VIAL. IV PRN (21:30)
[2019-10-07] MEDS ORDERED: INSULIN REGULAR VIAL 100 UNIT in IV NORMAL SALINE 100ML 100 ML IV PRN (21:30)
[2019-10-07] MEDS ORDERED: DEXTROSE 50% 25 GM / 50ML DISP.SYRIN. IV ONE (22:00)
[2019-10-07] MEDS ORDERED: DEXTROSE 50% 25 GM / 50ML DISP.SYRIN. IV PRN (22:30)
--- NOTE | 2019-10-07 23:27 | NUR ---
Pt admitted to room 664 from ED via gurney. Pt oriented to room, use of call light, and isolation status. Pt is asymptomatic aside from "smoker's cough" but reports being around his brother who is COVID positive. Pt states that he still does not have access to insulin or glucometer despite receiving resources from social work last admission. Will order new social work consult and continue with plan of care.
[2019-10-07 23:40] VITALS: BP 122/71
[2019-10-08 02:03] VITALS: BP 115/71
[2019-10-08] MEDS ORDERED: DEXTROSE 50% 25 GM / 50ML DISP.SYRIN. IV PRN (02:15)
[2019-10-08 07:00] VITALS: BP 113/65
[2019-10-08] MEDS: INSULIN LISPRO 300 UNITS/3 ML VIAL. SQ SCH ×3 (08:30→17:16)
[2019-10-08 11:00] VITALS: BP 122/72
--- NOTE | 2019-10-08 11:08 | DISCH ---
DISCHARGE INSTRUCTIONS Condition on Discharge Condition on Discharge: Stable Activity After Discharge Activity Instructions for Disc: Activity as tolerated Weight Bearing Status after Di: No restrictions Diet after Discharge Diet after Discharge: Diabetic No Calorie Level Liquid Texture: Thin Liquid Swallowing Supervision: None needed Checks after Discharge Checks after discharge: Check blood sugar, ac/hs, Check your Temp as needed Follow-Up Follow up with: PCP for diabetes control Treatment/Equipment after DC Adaptive Equipment Issued: None SRINIVASAN CLARKE MD Oct 08, 2019 11:08
[2019-10-08] MEDS: ACETAMINOPHEN 325 MG TABLET. PO PRN (11:57)
--- NOTE | 2019-10-08 14:45 | NUR ---
Per doctor Pranav, this RN spoke with lab to verify if COVID test had resulted, and it has not resulted at this time. Will continue to monitor.
[2019-10-08 15:00] VITALS: BP 107/61
--- NOTE | 2019-10-08 17:01 | NUR ---
SW following. Spoke with RN and reviewed chart. SW has seen this pt on previous admissions and pt has been provided with resources. Pt to discharge on oral medications and room air. No further SW needs per RN.
[2019-10-08 19:00] VITALS: BP 121/75
--- NOTE | 2019-10-08 22:24 | PDOC1 ---
History and Physical Date of Admission: Date of Admission DATE: 10/08/19 TIME: 22:18 History of Present Illness: HPI: 54 year old male who presents for evaluation of high blood sugar. Pt arrived via EMS from [place]. Blood sugar was "high" before arrival. Patient has had elevated blood sugars in the past. Patient is not had insulin for almost 1 week. He had been admitted to the hospital that time. As an outpatient patient had used methamphetamine recently he states as well. Patient is somewhat anxious and a bit agitated on arrival. Patient has a dry mouth and complained of increased urination. Patient states he may have been exposed to COVID from his brother Past Medical/Surgical History: PMH/PSH: Past Medical History: Diabetes-Type II Past Surgical History: No Surgical History Allergies: Allergies: Coded Allergies: No Known Drug Allergies (Unverified , 04/18/14) Family History: Family History: None Social History: Social History: Smoking Status: Current Every Day Smoker Alcohol Use: None Drug Use: Marijuana, Methamphetamine Current Medications: Current Medications Current Medications Sodium Chloride 1,000 ml @ 999 mls/hr 1X ONCE IV Last administered on at 19:45; Start 10/07/19 at 19:45; Stop 10/07/19 at 20:45; Status DC Insulin Human Regular (HumuLIN R VIAL) 8 unit 1X ONCE IV Last administered on 10/07/19at 20:30; Start 10/07/19 at 20:30; Stop 10/07/19 at 20:31; Status DC Insulin Human Regular 100 unit/ Sodium Chloride 101 ml @ 0 mls/hr CONT PRN IV SEE I/O RECORD; Start 10/07/19 at 21:30; Stop 10/08/19 at 02:14; Status DC Insulin Human Regular 100 ml @ As Directed STK-MED ONCE IV ; Start 10/07/19 at 21:24; Stop 10/07/19 at 21:24; Status DC Ondansetron HCl (Zofran) 4 mg PRN Q8HRS PRN IV NAUSEA/VOMITING 1ST CHOICE Last administered on 10/08/19at 14:17; Start 10/07/19 at 21:30; Stop 10/08/19 at 21:29; Status DC Sodium Chloride 1,000 ml @ 200 mls/hr Q5H IV Last administered on 10/07/19at 22:01; Start 10/07/19 at 21:30; Stop 10/08/19 at 02:29; Status DC Dextrose (Dextrose 50%-Water Syringe) 25 gm 1X ONCE IV ; Start 10/07/19 at 22:00; Stop 10/07/19 at 22:01; Status Cancel Insulin Human Regular 100 ml @ 0 mls/hr 1X ONCE IV Last administered on 10/07/19at 21:59; Start 10/07/19 at 22:00; Stop 10/07/19 at 22:01; Status DC Dextrose (Dextrose 50%-Water Syringe) 25 gm 1X PRN PRN IV HYPOGLYCEMIA; Start 10/07/19 at 22:30; Stop 10/08/19 at 02:14; Status DC Insulin Human Lispro (HumaLOG) 0-7 UNITS TIDWMEALS SQ Last administered on 10/08/19at 17:16; Start 10/08/19 at 08:00 Dextrose (Dextrose 50%-Water Syringe) 12.5 gm PRN Q15MIN PRN IV SEE COMMENTS; Start 10/08/19 at 02:15 Acetaminophen (Tylenol) 650 mg PRN Q4HRS PRN PO headache Last administered on 10/08/19at 11:57; Start 10/08/19 at 12:00 Active Scripts Active Meclizine Hcl 25 Mg Tablet 1 Tab PO BID Metformin Hcl 500 Mg Tablet 500 Mg PO BIDWMEALS 30 Days Humalog (Insulin Lispro) 100 Unit/1 Ml Insuln.pen 10 Units SQ TIDAC 30 Days Lantus Solostar (Insulin Glargine,Hum.rec.anlog) 100 Unit/1 Ml Insuln.pen 20 Units SQ QHS 30 Days ROS: Review of Systems Review of System REVIEW OF SYSTEMS: GENERAL: Denies weakness SKIN: No bruising, hair changes or rashes. EYES: No blurred, double or loss of vision. NOSE AND THROAT: No history of nosebleeds, hoarseness or sore throat. HEART: No history of palpitations, chest pain or shortness of breath on exertion. LUNGS: Denies cough, hemoptysis, wheezing or shortness of breath. GASTROINTESTINAL: Denies changes in appetite, nausea, vomiting, diarrhea or constipation. GENITOURINARY: No history of frequency, urgency, hesitancy or nocturia. NEUROLOGIC: Denies history of numbness, tingling, or tremor. PSYCHIATRIC: No history of panic, anxiety or depression. ENDOCRINE: No history of heat or cold intolerance, polyuria or polydipsia. EXTREMITIES: Denies joint pain, pain on walking or stiffness. Physical Exam: Vital Signs: Vital Signs Date Time Temp Pulse Resp B/P (MAP) Pulse Ox O2 Delivery O2 Flow Rate FiO2 10/08/19 20:00 Room Air 10/08/19 19:00 97.9 62 18 121/75 (90) 90 97.9 Physcial Exam: GEN: No apparent distress. Alert and oriented HEENT: Normal cephalic, atraumatic, external auditory canals are patent EYES: Extraocular muscles are intact, pupil are equally round and reactive to light and accommodation MUSCULOSKELETAL: Well developed , well nourished, good range of motion ENDOCRINE: No thyromegaly was palpated LYMPHATICS: No cervical chain or axillary nodes were noted HEMATOPOIETIC: No bruising NECK: Supple, no JVD, no thyromegaly was noted LUNGS: Clear to auscultation in all lung johnson without rhonchi or wheezing HEART: RRR, S!, S2 present. Peripheral pulses intact, no obvious murmurs noted ABDOMEN: Soft, nontender. Positive bowel sounds, no organomegaly, normal bowel sounds EXTREMITIES: Without clubbing, cyanosis, or edema. Pedal pulses intact. Negative Homans sign NEUROLOGIC: Normal speech and tone. A&O x 3, moves all extremities, no obvious focal deficits PSYCHIATRIC: Normal affect, normal mood. Stable SKIN: No ulcerations or rashes, good skin turgor, no jaundice VASCULAR: Good capillary refill, neurovascular bundle appears to be intact Labs: Labs: Laboratory Tests Test 10/07/19 19:50 10/07/19 20:15 10/07/19 22:31 10/07/19 23:39 White Blood Count 6.1 x10^3/uL (4.0-11.0) Red Blood Count 4.12 x10^6/uL (4.30-5.70) Hemoglobin 13.6 g/dL (13.0-17.5) Hematocrit 40.0 % (39.0-53.0) Mean Corpuscular Volume 97 fL (79-100) Mean Corpuscular Hemoglobin 33 pg (25-35) Mean Corpuscular Hemoglobin Concent 34 g/dL (31-37) Red Cell Distribution Width 13.1 % (11.5-14.5) Platelet Count 183 x10^3/uL (140-400) Neutrophils (%) (Auto) 67 % (31-73) Lymphocytes (%) (Auto) 22 % (24-48) Monocytes (%) (Auto) 6 % (0-9) Eosinophils (%) (Auto) 5 % (0-3) Basophils (%) (Auto) 1 % (0-3) Neutrophils # (Auto) 4.1 x10^3/uL (1.8-7.7) Lymphocytes # (Auto) 1.3 x10^3/uL (1.0-4.8) Monocytes # (Auto) 0.4 x10^3/uL (0.0-1.1) Eosinophils # (Auto) 0.3 x10^3/uL (0.0-0.7) Basophils # (Auto) 0.0 x10^3/uL (0.0-0.2) Sodium Level 130 mmol/L (136-145) Potassium Level 3.8 mmol/L (3.5-5.1) Chloride Level 94 mmol/L (98-107) Carbon Dioxide Level 29 mmol/L (21-32) Anion Gap 7 (6-14) Blood Urea Nitrogen 17 mg/dL (8-26) Creatinine 1.2 mg/dL (0.7-1.3) Estimated GFR (Cockcroft-Gault) 62.9 BUN/Creatinine Ratio 14 (6-20) Glucose Level 737 mg/dL (70-99) Calcium Level 8.0 mg/dL (8.5-10.1) Total Bilirubin 0.5 mg/dL (0.2-1.0) Aspartate Amino Transf (AST/SGOT) 14 U/L (15-37) Alanine Aminotransferase (ALT/SGPT) 25 U/L (16-63) Alkaline Phosphatase 134 U/L (46-116) Total Protein 6.7 g/dL (6.4-8.2) Albumin 3.3 g/dL (3.4-5.0) Albumin/Globulin Ratio 1.0 (1.0-1.7) Acetone Level Sm pos (NEG) Urine Collection Type Unknown Urine Color Yellow Urine Clarity Clear Urine pH 5.5 (<5.0-8.0) Urine Specific [place] >=1.030 (1.000-1.030) Urine Protein Negative mg/dL (NEG-TRACE) Urine Glucose (UA) >=1000 mg/dL (NEG) Urine Ketones (Stick) 15 mg/dL (NEG) Urine Blood Negative (NEG) Urine Nitrite Negative (NEG) Urine Bilirubin Negative (NEG) Urine Urobilinogen Dipstick 0.2 mg/dL (0.2 mg/dL) Urine Leukocyte Esterase Negative (NEG) Urine RBC Occ /HPF (0-2) Urine WBC Occ /HPF (0-4) Urine Bacteria 0 /HPF (0-FEW) Urine Opiates Screen Neg (NEG) Urine Methadone Screen Neg (NEG) Urine Barbiturates Neg (NEG) Urine Phencyclidine Screen Neg (NEG) Urine Amphetamine/Methamphetamine Pos (NEG) Urine Benzodiazepines Screen Neg (NEG) Urine Cocaine Screen Neg (NEG) Urine Cannabinoids Screen Neg (NEG) Urine Ethyl Alcohol Neg (NEG) Glucose (Fingerstick) 401 mg/dL (70-99) 245 mg/dL (70-99) Test 10/08/19 00:47 10/08/19 01:41 10/08/19 08:18 10/08/19 11:29 Glucose (Fingerstick) 147 mg/dL (70-99) 123 mg/dL (70-99) 221 mg/dL (70-99) 229 mg/dL (70-99) Test 10/08/19 21:57 Glucose (Fingerstick) 238 mg/dL (70-99) Laboratory Tests Test 10/07/19 22:31 10/07/19 23:39 10/08/19 00:47 10/08/19 01:41 Glucose (Fingerstick) 401 mg/dL (70-99) 245 mg/dL (70-99) 147 mg/dL (70-99) 123 mg/dL (70-99) Test 10/08/19 08:18 10/08/19 11:29 10/08/19 21:57 Glucose (Fingerstick) 221 mg/dL (70-99) 229 mg/dL (70-99) 238 mg/dL (70-99) Assessment/Plan Assessment/Plan Acute hyperglycemia due to HHS COVID under investigation Acute hyponatremia Acute methamphetamine abuse DM Type II Admit to med/tele continue insulin gtt trend bmp pending covid testing continue accuchecks and sliding scale ADA diet DVt prophy Discussed with RN Dispo: plan for DC in the am once covid is negative Justicifation of Admission Dx: Justifications for Admission: Justification of Admission Dx: Yes SRINIVASAN CLARKE MD Oct 08, 2019 22:24
[2019-10-08 23:00] VITALS: BP 126/77
[2019-10-09 03:00] VITALS: BP 132/76
[2019-10-09 05:42] LABS: CALCIUM 8.4 mg/dL (8.5-10.1); CREATININE 0.8 mg/dL (0.7-1.3); GFR 100.4; POTASSIUM 3.2 mmol/L (3.5-5.1)
[2019-10-09 07:00] VITALS: BP 140/84
[2019-10-09] MEDS ORDERED: POTASSIUM CHLORIDE 20 MEQ TABLET.ER. PO ONE (08:15)
[2019-10-09] MEDS: ACETAMINOPHEN 325 MG TABLET. PO PRN (08:25)
[2019-10-09] MEDS: INSULIN LISPRO 300 UNITS/3 ML VIAL. SQ SCH ×2 (08:29→12:26)
[2019-10-09 11:33] VITALS: BP 159/94
--- NOTE | 2019-10-09 14:18 | NUR ---
Discharge Note: KRAIG NICK Discharge instructions and discharge home medications reviewed with Patient and a copy given. All questions have been answered and understanding verbalized. The following instructions and handouts were given: Patient given education regarding medications. Discontinued lines and drains: Iv removed per protocol. Patient discharged home via cab pass.
--- NOTE | 2019-10-09 19:51 | PDOC3 ---
[facility]-Discharge Summary Date of Admission: Date of Admission: Oct 07, 2019 Date of Discharge: Date of Discharge: Oct 09, 2019 Admission Diagnosis: Admitting Diagnosis: Acute hyperglycemia due to HHS COVID under investigation Acute hyponatremia Acute methamphetamine abuse DM Type II Discharge Diagnosis: Discharge Diagnosis: Acute hyperglycemia due to HHS COVID under investigation Acute hyponatremia Acute methamphetamine abuse DM Type II Hospital Course: Hospital Course: 54 year old male who presents for evaluation of high blood sugar. Pt arrived via EMS from [place]. Blood sugar was "high" before arrival. Patient has had elevated blood sugars in the past. Patient is not had insulin for almos t 1 week. He had been admitted to the hospital that time. As an outpatient patient had used methamphetamine recently he states as well. Patient is somewhat anxious and a bit agitated on arrival. Patient has a dry mouth and complained of increased urination. Patient states he may have been exposed to COVID from his brother Patient was admitted for further manage for his elevated blood sugars. He was placed on insulin drip and his sugars improved to the 100s. He was transitioned to subcu insulin and he was tolerating diet. Patient was tested for COVID which resulted in negative results. Rest of the hospital course was uneventful GEN: No apparent distress. Alert and oriented HEENT: Normal cephalic, atraumatic, external auditory canals are patent MUSCULOSKELETAL: Well developed , well nourished, good range of motion NECK: Supple, no JVD, no thyromegaly was noted LUNGS: Clear to auscultation in all lung johnson without rhonchi or wheezing HEART: RRR, S!, S2 present. Peripheral pulses intact, no obvious murmurs noted ABDOMEN: Soft, nontender. Positive bowel sounds, no organomegaly, normal bowel sounds EXTREMITIES: Without clubbing, cyanosis, or edema. Pedal pulses intact. Negative Homans sign NEUROLOGIC: Normal speech and tone. A&O x 3, moves all extremities, no obvious focal deficits Activity: Activity: Resume previous activity Medications: Home Meds Active Scripts Meclizine Hcl (MECLIZINE HCL) 25 Mg Tablet, 1 TAB PO BID for dizziness, #10 TAB Prov:JAMEEL NJ MD 11/26/18 Metformin Hcl (METFORMIN HCL) 500 Mg Tablet, 500 MG PO BIDWMEALS for ANTI- DIABETIC for 30 Days, #60 TAB 0 Refills Prov:BISMARK ALMANZAR MD 09/24/18 Insulin Lispro (HUMALOG) 100 Unit/1 Ml Insuln.pen, 10 UNITS SQ TIDAC for dm for 30 Days, EACH Prov:BISMARK ALMANZAR MD 09/24/18 Insulin Glargine,Hum.rec.anlog (LANTUS SOLOSTAR) 100 Unit/1 Ml Insuln.pen, 20 UNITS SQ QHS for dm for 30 Days, EACH Prov:BISMARK ALMANZAR MD 09/24/18 Scheduled Insulin Glargine,Hum.rec.anlog (Lantus Solostar), 20 UNITS SQ QHS Insulin Lispro (Humalog), 10 UNITS SQ TIDAC Meclizine Hcl (Meclizine Hcl), 1 TAB PO BID Metformin Hcl (Metformin Hcl), 500 MG PO BIDWMEALS Total Time: Total Time: Total time spent was 20 minutes in preparing scripts, discharge planning with SWI and RN and preparing this discharge summary Justicifation of Admission Dx: Justifications for Admission: Justification of Admission Dx: Yes SRINIVASAN CLARKE MD Oct 09, 2019 19:51
== END 2019-10-09 14:00 | disposition home or self-care (01) ==
LOC: ER 19:27 → 6 SOUTH 21:21
PROVIDERS: ADMIT Family Medicine; ATTEND Family Medicine
DX: E11.65 Type 2 diabetes mellitus with hyperglycemia (principal); Z20.828 Contact with and (suspected) exposure to other viral communicable diseases; E87.1 Hypo-osmolality and hyponatremia; F15.10 Other stimulant abuse, uncomplicated; F17.200 Nicotine dependence, unspecified, uncomplicated; F12.90 Cannabis use, unspecified, uncomplicated; Z79.4 Long term (current) use of insulin; Z79.899 Other long term (current) drug therapy
CPT/HCPCS: 36415; 80048; 80053; 80307; 81001; 82010; 82962; 85025; 93005; 96361; 96365; 96372; 96375; 96376; 99284; G0378; J1815; J2405; J7030; U0003; G0379

== ENCOUNTER 2020-01-26 04:56 | Emergency (ER) | payer SELFPAY ==
[~2020-01-26] VITALS: Ht 167.6 cm; Wt 81.8 kg
[2020-01-26] MEDS ORDERED: IOHEXOL 300 MG/ML 100ML VIAL. IV ONE ×2 (05:00→06:00)
[2020-01-26 05:14] LABS: BILIRUBIN,URINE NEGATIVE (NEG); CLARITY,URINE CLEAR; COLOR,URINE YELLOW; NITRITE,URINE NEGATIVE (NEG); PH,URINE 6.5 (<5.0-8.0); PROTEIN,URINE NEGATIVE (NEG-TRACE); UROBILINOGEN,URINE 0.2 mg/dL (0.2 mg/dL)
[2020-01-26] MEDS ORDERED: IV NORMAL SALINE 1000ML BAG 1,000 ML IV ONE ×2 (05:15→05:45)
[2020-01-26 05:16] LABS: BASO # 0.1 x10^3/uL (0.0-0.2); BASO % 1 % (0-3); EOS # 0.1 x10^3/uL (0.0-0.7); EOS % 2 % (0-3); HEMATOCRIT 42.1 % (39.0-53.0); HEMOGLOBIN 13.7 g/dL (13.0-17.5); LYMPH # 0.8 x10^3/uL (1.0-4.8); LYMPH % 16 % (24-48); MEAN CORPUSCULAR HEMOGLOBIN 34 pg (25-35); MEAN CORPUSCULAR HGB CONC 33 g/dL (31-37); MEAN CORPUSCULAR VOLUME 103 fL (79-100); MONO # 0.3 x10^3/uL (0.0-1.1); MONO % 6 % (0-9); NEUT # 3.9 x10^3/uL (1.8-7.7); NEUT % 76 % (31-73); PLATELET COUNT 174 x10^3/uL (140-400); RED BLOOD COUNT 4.09 x10^6/uL (4.30-5.70); RED CELL DISTRIBUTION WIDTH 13.5 % (11.5-14.5); WHITE BLOOD COUNT 5.2 x10^3/uL (4.0-11.0)
[2020-01-26 05:21] LABS: BACTERIA,URINE 0 /HPF (0-FEW); BARBITURATES NEG (NEG); BENZODIAZEPINES NEG (NEG); CANNABINOIDS NEG (NEG); COCAINE NEG (NEG); METHADONE NEG (NEG); OPIATES NEG (NEG); PHENCYCLIDINE NEG (NEG); RBC,URINE 0 /HPF (0-2); WBC,URINE 0 /HPF (0-4)
[2020-01-26 05:23] LABS: AMPHETAMINE/METHAMPHETAMINE POS (NEG)
[2020-01-26 05:27] LABS: CALCIUM 8.8 mg/dL (8.5-10.1); CREATININE 1.2 mg/dL (0.7-1.3); GFR 62.9; POTASSIUM 4.9 mmol/L (3.5-5.1)
[2020-01-26 05:30] LABS: ALBUMIN 3.3 g/dL (3.4-5.0); TOTAL BILIRUBIN 0.7 mg/dL (0.2-1.0); TOTAL PROTEIN 6.5 g/dL (6.4-8.2)
[2020-01-26] MEDS ORDERED: INSULIN REGULAR 100 UNIT/ML 3ML VIAL. IV ONE (05:45)
--- NOTE | 2020-01-26 05:47 | PHYS DOC ---
Past Medical History Past Medical History: Diabetes-Type II (CHERYL VILLATORO DO) Past Surgical History: No Surgical History (CHERYL VILLATORO DO) Smoking Status: Current Every Day Smoker Alcohol Use: Occasionally Drug Use: Marijuana, Methamphetamine (CHERYL VILLATORO DO) General Adult EDM: Chief Complaint: HYPERGLYCEMIA HPI: HPI: Patient is a 54 year old male who was brought here by EMS due to elevated blood sugar. Patient has history of diabetic, he is on insulin and Metformin. It was reported that patient was arrested by law enforcement this morning while he was on his way to his sister's house. Patient told mounted police at the time that he was having abdominal pain so they released him from police custody and called EMS to evaluate him. EMS checked his blood sugar and it was too high to measure. Patient complained of abdominal pain associated with severe thirst off and on for several months. Patient also said he had loss about 80 pounds this year. Patient denies any chest pain, no trouble breathing. Patient denied suicidal ideation. Patient denies any cough or fever patient denies being exposed to anybody who tested positive for COVID-19. (CHERYL VILLATORO DO) Review of Systems: Review of Systems: Constitutional: Denies fever or chills. [] Eyes: Denies change in visual acuity. [] HENT: Denies nasal congestion or sore throat. [] Respiratory: Denies cough or shortness of breath. [] Cardiovascular: Denies chest pain or edema. [] GI: Positive for abdominal pain, NO nausea, vomiting, bloody stools or diarrhea. [] : Denies dysuria. [] Musculoskeletal: Denies back pain or joint pain. [] Integument: Denies rash. [] Neurologic: Denies headache, focal weakness or sensory changes. [] Endocrine: Positive for polyuria or polydipsia. [] Lymphatic: Denies swollen glands. [] Psychiatric: Denies depression or anxiety. [] (CHERYL VILLATORO DO) Heart Score: Risk Factors: Risk Factors: DM, Current or recent (<one month) smoker, HTN, HLP, family history of CAD, obesity. Risk Scores: Score 0 - 3: 2.5% MACE over next 6 weeks - Discharge Home Score 4 - 6: 20.3% MACE over next 6 weeks - Admit for Clinical Observation Score 7 - 10: 72.7% MACE over next 6 weeks - Early Invasive Strategies (CHERYL VILLATORO DO) Current Medications: Current Medications Medications (Trade) Dose Ordered Sig/Sofia Start Time Stop Time Status Last Admin Dose Admin Insulin Human Regular (HumuLIN R VIAL) 10 unit 1X ONCE 01/26/20 05:45 01/26/20 05:46 UNV Iohexol (Omnipaque 300 Mg/ml) 75 ml 1X ONCE 01/26/20 05:45 01/26/20 05:46 UNV Sodium Chloride 1,000 ml @ 1,000 mls/hr 1X ONCE 01/26/20 05:45 01/26/20 06:44 (CHERYL VILLATORO DO) Allergies: Allergies: Allergies Coded Allergies Type Severity Reaction Last Updated Verified No Known Drug Allergies 04/18/14 No (CHERYL VILLATORO DO) Physical Exam: PE: Constitutional: Well developed, well nourished, no acute distress, non-toxic appearance. [] HENT: Normocephalic, atraumatic, bilateral external ears normal, oropharynx is very dried, no oral exudates, nose normal. [] Eyes: PERRLA, EOMI, conjunctiva normal, no discharge. [] Neck: Normal range of motion, no tenderness, supple, no stridor. [] Cardiovascular:Heart rate regular rhythm, no murmur [] Lungs & Thorax: Bilateral breath sounds clear to auscultation [] Abdomen: Bowel sounds normal, soft, There is tenderness to palpation in epigastric area, no masses, no pulsatile masses. [] Skin: Warm, dry, no erythema, no rash. [] Back: No tenderness, no CVA tenderness. [] Extremities: No tenderness, no cyanosis, no clubbing, ROM intact, no edema. [] Neurologic: Alert and oriented X 3, normal motor function, normal sensory function, no focal deficits noted. [] Psychologic: Affect normal, judgement normal, mood normal. [] (CHERYL VILLATORO DO) Current Patient Data: Labs: Laboratory Tests Test 01/26/20 05:04 Urine Collection Type Unknown Urine Color Yellow Urine Clarity Clear Urine pH 6.5 (<5.0-8.0) Urine Specific [place] >=1.030 (1.000-1.030) Urine Protein Negative mg/dL (NEG-TRACE) Urine Glucose (UA) >=1000 mg/dL (NEG) Urine Ketones (Stick) Negative mg/dL (NEG) Urine Blood Negative (NEG) Urine Nitrite Negative (NEG) Urine Bilirubin Negative (NEG) Urine Urobilinogen Dipstick 0.2 mg/dL (0.2 mg/dL) Urine Leukocyte Esterase Negative (NEG) Urine RBC 0 /HPF (0-2) Urine WBC 0 /HPF (0-4) Urine Squamous Epithelial Cells Occ /LPF Urine Bacteria 0 /HPF (0-FEW) Sodium Level 122 mmol/L (136-145) L Potassium Level 4.9 mmol/L (3.5-5.1) Chloride Level 89 mmol/L (98-107) L Carbon Dioxide Level 26 mmol/L (21-32) Anion Gap 7 (6-14) Blood Urea Nitrogen 21 mg/dL (8-26) Creatinine 1.2 mg/dL (0.7-1.3) Estimated GFR (Cockcroft-Gault) 62.9 BUN/Creatinine Ratio 18 (6-20) Glucose Level Pending Calcium Level 8.8 mg/dL (8.5-10.1) Total Bilirubin 0.7 mg/dL (0.2-1.0) Aspartate Amino Transferase (AST) 20 U/L (15-37) Alanine Aminotransferase (ALT) 24 U/L (16-63) Alkaline Phosphatase 111 U/L (46-116) Troponin I Quantitative < 0.017 ng/mL (0.000-0.055) Total Protein 6.5 g/dL (6.4-8.2) Albumin 3.3 g/dL (3.4-5.0) L Albumin/Globulin Ratio 1.0 (1.0-1.7) Lipase 266 U/L (73-393) Urine Opiates Screen Neg (NEG) Urine Methadone Screen Neg (NEG) Urine Barbiturates Neg (NEG) Urine Phencyclidine Screen Neg (NEG) Urine Amphetamine/Methamphetamine Pos (NEG) Urine Benzodiazepines Screen Neg (NEG) Urine Cocaine Screen Neg (NEG) Urine Cannabinoids Screen Neg (NEG) Urine Ethyl Alcohol Neg (NEG) Laboratory Tests 01/26/20 05:04 Vital Signs: Vital Signs Date Time Temp Pulse Resp B/P (MAP) Pulse Ox O2 Delivery O2 Flow Rate FiO2 01/26/20 04:57 97.6 85 20 152/98 (116) 98 Room Air 97.6 (CHERYL VILLATORO DO) EKG: EKG: EKG was done 538, heart rate of 69 beats per minute, sinus rhythm, no ST segment elevation QT interval 380 , QTC 409. (CHERYL VILLATORO DO) Radiology/Procedures: Radiology/Procedures: [] (CHERYL VILLATORO DO) Radiology/Procedures: [facility] [address] [place] [address] IMAGING REPORT Signed PATIENT: KRAIG NICK ACCOUNT: [id number] : 1965 LOCATION: ER AGE: 54 SEX: M EXAM STATUS: REG ER ORD. PHYSICIAN: CHERYL VILLATORO DO REASON: epigastric abdominal pain PROCEDURE: CT ABD PELV W/ IV CONTRST ONLY EXAM: CT ABDOMEN/PELVIS WITH CONTRAST. HISTORY: Abdominal pain. TECHNIQUE: Computed tomography of the abdomen and pelvis was performed after the intravenous administration of iodinated contrast. One or more of the following individualized dose reduction techniques were utilized for this examination: 1. Automated exposure control. 2. Adjustment of the mA and/or kV according to patient size. 3. Use of iterative reconstruction technique. COMPARISON: None. FINDINGS: Lung windows through the visualized portions of the bases reveal mild atelectasis. Bone windows reveal no suspicious lesions. Hip osteoarthritis is severe on the left and mild to moderate on the right. The gallbladder is surgically absent. The liver, spleen, pancreas, adrenal glands and kidneys are unremarkable. There are no pathologically enlarged lymph nodes. Sigmoid diverticulosis is moderate. The appendix is not inflamed. Stool throughout the colon is consistent with constipation. There is no small bowel obstruction. IMPRESSION: 1. Mild constipation. No acute intra-abdominal findings. Electronically signed by: Darlene Rod MD (01/26/2020 6:13 AM) [facility] DICTATED and SIGNED BY: SHAYNE ROD MD DATE: 01/26/20612 (NEFTALY DURBIN DO) Course & Med Decision Making: Course & Med Decision Making Pertinent Labs and Imaging studies reviewed. (See chart for details) Patient is a 54-year-old male who was evaluated in the ER due to elevated blood sugar, abdominal pain. Patient care was turned over to Dr. Summers at shift change, awaiting for labs and CT scan of his abdomen and pelvic... (CHERYL VILLATORO DO) Course & Med Decision Making I have received signout on the patient's emergency department care from Dr. Villatoro. We discussed the history, physical exam findings, completed and pending laboratory results and imaging studies. We have also discussed the current erika atment plan and expected clinical course. Please refer to further update notes for additional information regarding the patient's final diagnosis and disposition. In brief patient is a 54-year-old male with history of insulin-dependent diabetes who presents with hyperglycemia. He does have initial blood sugar of approximately 1100. Pseudohyponatremia present. No signs of elevated anion gap to suggest DKA. He was given 10 units of regular insulin. His repeat blood sugar did improve to approximately 500. He was given 2 L normal saline for dehydration. On repeat examination his abdominal exam is benign. He states he is feeling much better and has tolerated p.o. I do feel it is reasonable to discharge patient home with home insulin. He was given prescriptions to refill his home insulin. He will be given MiraLAX for constipation identified on CAT scan imaging. He was given strict 24 to 48-hour return precautions and expressed understanding. Stable for discharge home. (NEFTALY DURBIN DO) Margaret Disclaimer: Margaret Disclaimer: This electronic medical record was generated, in whole or in part, using a voice recognition dictation system. (CHERYL VILLATORO DO) Departure Departure Impression: Primary Impression: Hyperglycemia Additional Impression: Abdominal pain Qualified Codes: R10.84 - Generalized abdominal pain Disposition: 01 DC HOME SELF CARE/HOMELESS Condition: STABLE Referrals: NO PCP (PCP) Patient Instructions: How and Where to Give Insulin Injections, Adult Scripts Polyethylene Glycol 3350 (MIRALAX) 17 Gm Powd.pack 1 PACKET PO DAILY for constipation for 2 Days, #5 PACKET 0 Refills dissolve in water Prov: NEFTALY DURBIN DO 01/26/20 Insulin Glargine,Hum.rec.anlog (LANTUS SOLOSTAR) 100 Unit/1 Ml Insuln.pen 30 UNIT SQ QHS, #15 ML 3 Refills Prov: NEFTALY DURBIN DO 01/26/20 Insulin Lispro (HUMALOG) 100 Unit/1 Ml Insuln.pen 10 UNITS SQ TIDAC for dm for 30 Days, EACH Prov: NEFTALY DURBIN DO 01/26/20 CHERYL VILLATORO DO Jan 26, 2020 05:47 NEFTALY DURBIN DO Jan 26, 2020 06:57
[2020-01-26] MEDS ORDERED: CONTRAST GIVEN. MC PRN (06:00)
--- NOTE | 2020-01-26 06:16 | RAD ---
EXAM: CT ABDOMEN/PELVIS WITH CONTRAST. HISTORY: Abdominal pain. TECHNIQUE: Computed tomography of the abdomen and pelvis was performed after the intravenous administration of iodinated contrast. One or more of the following individualized dose reduction techniques were utilized for this examination: 1. Automated exposure control. 2. Adjustment of the mA and/or kV according to patient size. 3. Use of iterative reconstruction technique. COMPARISON: None. FINDINGS: Lung windows through the visualized portions of the bases reveal mild atelectasis. Bone windows reveal no suspicious lesions. Hip osteoarthritis is severe on the left and mild to moderate on the right. The gallbladder is surgically absent. The liver, spleen, pancreas, adrenal glands and kidneys are unremarkable. There are no pathologically enlarged lymph nodes. Sigmoid diverticulosis is moderate. The appendix is not inflamed. Stool throughout the colon is consistent with constipation. There is no small bowel obstruction. IMPRESSION: 1. Mild constipation. No acute intra-abdominal findings. Electronically signed by: Darlene Rod MD (01/26/2020 6:13 AM) [facility]
[2020-01-26] MEDS ORDERED: INSU100I13 SQ (06:55)
[2020-01-26] MEDS ORDERED: INSU100I11 SQ (06:55)
[2020-01-26] MEDS ORDERED: POLY17PO29 PO (06:55)
[2020-01-26 06:56] LABS: PROTHROMBIN TIME PATIENT 11.7 SEC (11.7-14.0)
--- NOTE | 2020-01-26 07:57 | EKG ---
[facility] [address] [place] [address] Test Date: 2020-01-26 Test Time: 05:38:28 Pat Name: KRAIG NICK Department: Room: Gender: M Emergency Services Dispatcher: : 1965 Requested By: CHERYL VILLATORO Order Number: [id number] Reading MD: Measurements Intervals [place] Rate: 69 P: 28 DE: 184 QRS: -9 QRSD: 90 T: 27 QT: 380 QTc: 409 Interpretive Statements SINUS RHYTHM LEFTWARD AXIS QRS(T) CONTOUR ABNORMALITY CONSIDER ANTEROLATERAL MYOCARDIAL DAMAGE POSSIBLY ABNORMAL ECG RI6.01 No previous ECG available for comparison
[2020-01-26 09:00] VITALS: BP 169/96
== END 2020-01-26 08:55 | disposition home or self-care (01) ==
LOC: ER 04:56
DX: E11.65 Type 2 diabetes mellitus with hyperglycemia (principal); R10.84 Generalized abdominal pain; R35.8 Other polyuria; F17.200 Nicotine dependence, unspecified, uncomplicated; F12.90 Cannabis use, unspecified, uncomplicated; F19.90 Other psychoactive substance use, unspecified, uncomplicated
CPT/HCPCS: 36415; 74177; 80053; 80307; 81001; 82010; 82962; 83690; 83735; 83880; 84484; 85025; 85610; 85730; 93005; 96361; 96374; 99285; J1815; J7030; Q9967

== ENCOUNTER 2020-11-01 18:58 | Emergency (ER) | payer SELFPAY ==
[~2020-11-01] VITALS: Ht 167.6 cm; Wt 65.9 kg
[~2020-11-01 18:58] MED LIST changes: +DOXY-181 PO; -DOXY100C14 PO; +POLY17PO29 PO
--- NOTE | 2020-11-02 01:35 | PHYS DOC ---
Past Medical History Past Medical History: Diabetes-Type II Past Surgical History: No Surgical History Smoking Status: Former Smoker Alcohol Use: None Drug Use: Marijuana, Methamphetamine General Adult EDM: Chief Complaint: HYPERGLYCEMIA HPI: HPI: 55-year-old male past medical history of insulin-dependent diabetes and tobacco dependence presents the ED after he was arrested/policeman at bedside, complains of dizziness, nausea, vomiting and epigastric abdominal pain stating " I know my sugars are high." Patient states he takes 70/30 insulin, approximately 10-20 units of insulin twice daily. Reports he never checks his glucose. Patient with no observed vomiting while in waiting room. Denies any alcohol or drug use. No associated head injury, syncope or loss of consciousness. Review of Systems: Review of Systems: Constitutional: Denies fever or chills. [] Eyes: Denies change in visual acuity. [] HENT: Denies nasal congestion or sore throat. [] Respiratory: Denies cough or increased work of breathing Cardiovascular: Denies chest pain or edema or syncope GI: Denies bloody stools or diarrhea. [] : Denies dysuria or hematuria Musculoskeletal: Denies back pain or joint pain. [] Integument: Denies rash or diaphoresis Neurologic: Denies headache, focal weakness or sensory changes. [] Endocrine: Denies polyuria or polydipsia. [] Lymphatic: Denies swollen glands. [] Psychiatric: Denies depression or anxiety. [] Heart Score: C/O Chest Pain: No Risk Factors: Risk Factors: DM, Current or recent (<one month) smoker, HTN, HLP, family history of CAD, obesity. Risk Scores: Score 0 - 3: 2.5% MACE over next 6 weeks - Discharge Home Score 4 - 6: 20.3% MACE over next 6 weeks - Admit for Clinical Observation Score 7 - 10: 72.7% MACE over next 6 weeks - Early Invasive Strategies Current Medications: Current Medications Medications (Trade) Dose Ordered Sig/Sofia Start Time Stop Time Status Last Admin Dose Admin Sodium Chloride 1,000 ml @ 1,000 mls/hr 1X ONCE 11/02/20 01:30 11/02/20 02:29 UNV Allergies: Allergies: Allergies Coded Allergies Type Severity Reaction Last Updated Verified No Known Drug Allergies 04/18/14 No Physical Exam: PE: Constitutional: Well developed, well nourished, no acute distress, non-toxic appearance, lying comfortably handcuffed to bed HENT: Normocephalic, atraumatic, moist mucous membranes Eyes: EOMI, conjunctiva normal, no discharge. Neck: Normal range of motion, supple, Cardiovascular: S1/2 present, regular rhythm Lungs & Thorax: Speaking in full sentences, bilateral equal chest rise, no ta chypnea or increased work of breathing Abdomen: soft, mild epigastric abdominal tenderness, no peritonitis or guarding, no Rodriguez sign, no McBurney's point tenderness Skin: Warm, dry, no erythema, no rash. [] Extremities: No tenderness, no cyanosis, no lower extremity edema Neurologic: Alert and oriented X 3, normal motor function, normal sensory function, no focal deficits noted. [] Psychologic: Affect normal, judgement normal, mood normal. [] Current Patient Data: Labs: Laboratory Tests Test 11/01/20 23:01 11/02/20 01:24 Glucose (Fingerstick) 539 mg/dL (70-99) *H 477 mg/dL (70-99) H Vital Signs: Vital Signs Date Time Temp Pulse Resp B/P (MAP) Pulse Ox O2 Delivery O2 Flow Rate FiO2 11/02/20 00:50 97.7 88 21 126/89 (120) 99 Room Air 97.7 EKG: EKG: Sinus rhythm 63 bpm, left axis deviation, normal intervals, no T wave inversions, no ST depressions or ST depressions, no active chest pain Radiology/Procedures: Radiology/Procedures: [] Course & Med Decision Making: Course & Med Decision Making Pertinent Labs and Imaging studies reviewed. (See chart for details) Concern for hyperglycemia secondary to uncontrolled, nonketotic diabetes with normal lipase. I suspect patient's epigastric abdominal pain is more likely related to gastroparesis from uncontrolled diabetes. Troponin is negative. EKG with no ischemia. Patient has no chest pain pressure heaviness or tightness. Epigastric pain is sharp in nature. No active nausea or vomiting. Chest x-ray viewed by myself with no acute process, awaiting radiologic reading. Will discharge home with strict ED return precautions were given for typical chest pain, syncope, neurologic deficits or fever. Encouraged urgent outpatient follow-up with PMD and endocrine for definitive management diabetes. Life- threatening processes were considered but are low suspicion at this time, given history, physical exam and ED workup. Pt was educated on all prescription medications and adverse effects. All patient's questions were answered and pt was stable at time of discharge. Life/limb-threatening differential includes but is not limited to, aortic dissection, aortic aneurysm, acute coronary syndrome, surgical abdomen (appendicitis, cholecystitis, ischemic bowel, strangulated hernia, etc), bowel obstruction or volvulus, bladder outlet obstruction, gastrointestinal bleeding, inflammatory bowel disease, peptic ulcer disease, ACS/CAD, sepsis, diverticular disease, ureterolithiasis, nephrolithiasis, ovarian or testicular torsion, ectopic , vaginal hemorrhage, or genitourinary infection. I have spoken with the patient and/or caregivers. I explained the patient's condition, diagnoses and treatment plan based on the information available to me at this time. I have answered the patient and/or caregiver's questions and addressed any concerns. The patient and/or caregivers have a good understanding of patient's diagnosis, condition and treatment plan as can be expected at this point. Vital signs have been stable. Patient's condition is stable and appropriate for discharge from the emergency department. Patient will pursue further outpatient evaluation with primary care physician or other designated or consulting physician as outlined in the discharge instructions. The patient and/or caregivers are agreeable to this plan of care and follow-up instructions have been explained in detail. The patient and/or caregivers have received these instructions in written form and have expressed an understanding of the discharge instructions. The patient and/or caregivers are aware that any significant change of condition or worsening of symptoms should prompt immediate return to this or the closest emergency department or call to 911. Margaret Disclaimer: Margaret Disclaimer: This electronic medical record was generated, in whole or in part, using a voice recognition dictation system. Departure Departure Impression: Primary Impression: Uncontrolled diabetes mellitus Additional Impression: Hyperglycemia Disposition: 01 HOME / SELF CARE / HOMELESS Condition: STABLE Referrals: NO PCP (PCP) Follow-up with your primary care physician in 24 to 48 hours OR FOLLOW UP WITH FAMILY MEDICINE: [address] [place] [address] Patient Instructions: Diabetes Meal Planning Guide, Hyperglycemia Additional Instructions: [facility] -Endocrinology FOR DEFINITIVE MANAGEMENT of uncontrolled diabetes [facility] [address] [place] [address] OR [facility] [address] [place] [address] OR [facility] [address] [place] [address] EMERGENCY DEPARTMENT GENERAL DISCHARGE INSTRUCTIONS Thank you for coming to [facility] Emergency Department (ED) today and trusting us with you care. We trust that you had a positive experience in our Emergency Department. If you wish to speak to the department management, you may call the Director at [phone]. YOUR FOLLOW UP INSTRUCTIONS ARE FOLLOWS: 1. Do you have a private Doctor? If you do not have a private doctor, please ask for a resource list of physicians or clinics that may be able to assist you with follow up care. ADDITIONAL INSTRUCTIONS AND INFORMATION: 1. Your care today has been supervised by a physician who is specially trained in emergency care. Many problems require more than one evaluation for a complete diagnosis and treatment. We recommend that you schedule your follow up appointment as recommended to ensure complete treatment of you illness or injury. If you are unable to obtain follow up care and continue to have a problem, or if your condition worsens, we recommend that you return to the ED. 2. We are not able to safely determine your condition over the phone nor are we able to give sound medical advice over the phone. For these safety reasons, if you call for medical advice we will ask you to come to the ED for further evaluation. 3. If you have any questions regarding these discharge instructions please call the ED at [phone]. SAFETY INFORMATION: In the interest of safety, wellness, and injury prevention; we encourage you to wear your sealbelt, if you smoke; quite smoking, and we encourage family to use a protective helmet for bicycling and other sporting events that present an increased risk for head injury. IF YOUR SYMPTOMS WORSEN OR NEW SYMPTOMS DEVELOP, OR YOU HAVE CONCERNS ABOUT YOUR CONDITION; OR IF YOUR CONDITION WORSENS WHILE YOU ARE WAITING FOR YOUR FOLLOW UP APPOINTMENT; EITHER CONTACT YOUR PRIMARY CARE DOCTOR, THE PHYSICIAN WHOSE NAME AND NUMBER YOU WERE GIVEN, OR RETURN TO THE ED IMMEDIATELY. SUNIL NEVAREZ DO Nov 02, 2020 01:35
[2020-11-02 01:40] LABS: BASO # 0.1 x10^3/uL (0.0-0.2); BASO % 1 % (0-3); EOS # 0.2 x10^3/uL (0.0-0.7); EOS % 3 % (0-3); HEMATOCRIT 47.8 % (39.0-53.0); HEMOGLOBIN 16.4 g/dL (13.0-17.5); LYMPH % 40 % (24-48); MEAN CORPUSCULAR HEMOGLOBIN 33 pg (25-35); MEAN CORPUSCULAR HGB CONC 34 g/dL (31-37); MEAN CORPUSCULAR VOLUME 97 fL (79-100); MONO # 0.4 x10^3/uL (0.0-1.1); MONO % 5 % (0-9); NEUT % 52 % (31-73); PLATELET COUNT 263 x10^3/uL (140-400); RED BLOOD COUNT 4.93 x10^6/uL (4.30-5.70); RED CELL DISTRIBUTION WIDTH 12.8 % (11.5-14.5); WHITE BLOOD COUNT 7.7 x10^3/uL (4.0-11.0)
[2020-11-02] MEDS ORDERED: IV RINGERS,LACTATED 1000ML 1,000 ML IV ONE ×2 (01:45)
[2020-11-02 01:55] LABS: CALCIUM 9.6 mg/dL (8.5-10.1); CREATININE 0.9 mg/dL (0.7-1.3); GFR 87.3; POTASSIUM 4.2 mmol/L (3.5-5.1)
[2020-11-02] MEDS ORDERED: IV NORMAL SALINE 1000ML BAG 1,000 ML IV SCH (02:00)
[2020-11-02 02:01] LABS: ALBUMIN 3.5 g/dL (3.4-5.0); DIRECT BILIRUBIN 0.1 mg/dL (0.0-0.2); MAGNESIUM 1.9 mg/dL (1.8-2.4); TOTAL BILIRUBIN 0.9 mg/dL (0.2-1.0)
--- NOTE | 2020-11-02 02:41 | EKG ---
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
[2020-11-02 03:40] VITALS: BP 130/87
--- NOTE | 2020-11-02 05:19 | RAD ---
Study: XR CHEST 1V Indication: Nausea and vomiting. Comparison: 09/29/2019 Findings: Within normal limits cardiomediastinal silhouette and fatimah considering AP technique and low lung volu mes. No focal airspace infiltrate, pleural effusion or pneumothorax. Chronic changes at the shoulders not fully assessed on the single obtained view. Impression: No acute radiographic abnormality of the chest. Electronically signed by: CARISA HERRERA MD (11/02/2020 5:17 AM) [facility]
== END 2020-11-02 03:49 | disposition home or self-care (01) ==
LOC: ER 18:58 → EEVIPCON 18:58 → ER 11-02 03:49
DX: E11.65 Type 2 diabetes mellitus with hyperglycemia (principal); R11.2 Nausea with vomiting, unspecified; R10.13 Epigastric pain; Z87.891 Personal history of nicotine dependence
CPT/HCPCS: 36415; 71045; 80048; 80076; 82010; 82962; 83690; 83735; 83880; 83930; 84484; 85025; 93005; 96360; 99285; J7120